=== PATIENT | female | born 1990 | race African-American/Black ===

== ENCOUNTER 2017-06-26 19:01 | Inpatient (IN) | payer BC, OTHER ==
[~2017-06-26] VITALS: Ht 165.1 cm; Wt 73.5 kg
[2017-06-26] MEDS ORDERED: METHYLPREDNISOLONE 125 MG INJ IV ONE (20:30)
[2017-06-26 21:23] LABS: INR 0.97; PROTIME 12.9 Sec (12.2-14.2)
[2017-06-26 21:24] LABS: PARTIAL THROMBOPLASTIN TIME 31.8 Sec (25.0-35.0)
[2017-06-26 21:30] LABS: ALBUMIN 4.8 g/dl (3.3-4.9); ALBUMIN/GLOBULIN RATIO 1.45; BILIRUBIN,INDIRECT 0.3 mg/dl (0-1.1); BILIRUBIN,TOTAL 0.3 mg/dl (0.2-1.3); CALCIUM 10.1 mg/dl (8.4-10.2); CREATININE 0.66 mg/dl (0.44-1.00); POTASSIUM 3.6 mmol/L (3.5-5.1); TOTAL PROTEIN 8.1 g/dl (6.1-8.1)
[2017-06-26] MEDS ORDERED: LORAZEPAM 2 MG INJ IV ONE (22:00)
[2017-06-27] VITALS (15 sets, daily range): BP systolic 107–119; BP diastolic 56–80; PULSE 83–153; RESP 16–18; TEMP 98.1; Ht 165.1 cm; Wt 73.5 kg
[2017-06-27] MEDS ORDERED: BISACODYL (EC) 5 MG TAB PO PRN (02:30)
[2017-06-27] MEDS ORDERED: DOCUSATE SODIUM 100 MG CAP PO PRN (02:30)
[2017-06-27] MEDS ORDERED: NACL 0.9% 3 ML SYG IV SCH (02:30)
[2017-06-27] MEDS ORDERED: ONDANSETRON 4 MG TAB PO PRN (02:30)
--- NOTE | 2017-06-27 02:39 | ERD ---
ER Documentation Chief Complaint Chief Complaint numbness on L leg x 3 weeks HPI 26-year-old female with history of transverse myelitis with residual right lower extremity weakness comes in with complaints of lower left lower leg numbness for the past 2 weeks getting progressively worse. No nausea vomiting or chills. No change in bowel or bladder incontinence. No other current issues. Denies any focal neurologic complaints otherwise. Denies trauma. Patient states that she is slightly numb on the buttock and thigh and decreasingly numb in the lowest part of the extremity ROS All systems reviewed and are negative except as per history of present illness. Allergies Allergies: Coded Allergies: aspirin (Verified Allergy, Unknown, 06/26/17) PMhx/Soc Medical and Surgical Hx: pt denies Medical Hx, pt denies Surgical Hx History of Surgery: No Anesthesia Reaction: No Hx Neurological Disorder: Yes (right leg numbness ) Hx Respiratory Disorders: No Hx Cardiac Disorders: No Hx Psychiatric Problems: No Hx Miscellaneous Medical Probl: No Hx Alcohol Use: No Hx Substance Use: No Hx Tobacco Use: No Smoking Status: Never smoker Physical Exam Vitals Vital Signs Date Time Temp Pulse Resp B/P Pulse Ox O2 Delivery O2 Flow Rate FiO2 06/27/17 02:00 98.1 103 18 117/63 97 Room Air 06/26/17 19:32 98.5 83 20 131/76 99 Physical Exam Const: [] Head: Atraumatic Eyes: Normal Conjunctiva ENT: Normal External Ears, Nose and Mouth. Neck: Full range of motion..~ No meningismus. Resp: Clear to auscultation bilaterally Cardio: Regular rate and rhythm, no murmurs Abd: Soft, non tender, non distended. Normal bowel sounds Skin: No petechiae or rashes Back: No midline or flank tenderness Ext: No cyanosis, or edema Neur: Awake and alert Psych: Normal Mood and Affect Result Diagram: 06/26/172044 Results 24 hrs Laboratory Tests Test 06/26/17 20:45 Prothrombin Time 12.9Sec Prothrombin Time Ratio 1.0 INR International Normalized Ratio 0.97 Activated Partial Thromboplast Time 31.8Sec Sodium Level 141mmol/L Potassium Level 3.6mmol/L Chloride Level 102mmol/L Carbon Dioxide Level 25mmol/L Anion Gap 18 Blood Urea Nitrogen 13mg/dl Creatinine 0.66mg/dl Glucose Level 102mg/dl Calcium Level 10.1mg/dl Total Bilirubin 0.3mg/dl Direct Bilirubin 0.00mg/dl Indirect Bilirubin 0.3mg/dl Aspartate Amino Transf (AST/SGOT) 20IU/L Alanine Aminotransferase (ALT/SGPT) 21IU/L Alkaline Phosphatase 56IU/L Total Protein 8.1g/dl Albumin 4.8g/dl Globulin 3.30g/dl Albumin/Globulin Ratio 1.45 Current Medications Medications (Trade) Dose Ordered Sig/Avel Route PRN Reason Start Time Stop Time Status Last Admin Dose Admin Methylprednisolone Sodium Succinate (Solu-Medrol) 125 mg ONCE ONCE IV 06/26/17 20:30 06/26/17 20:31 DC 06/26/17 20:50 Lorazepam 1 mg 1 mg ONCE ONCE IV 06/26/17 22:00 06/26/17 22:04 DC 06/26/17 21:42 Methylprednisolone Sodium Succinate/ Dextrose (Solu-Medrol/D5W) 50 ml @ 100 mls/hr DAILY IVPB 06/27/17 03:00 07/02/17 02:59 Pantoprazole (Protonix Tab) 40 mg DAILY@06 PO 06/27/17 06:00 IV Flush (NS 3 ml) 3 ml PER PROTOCOL IV 06/27/17 02:30 Ondansetron HCl (Zofran Tab) 4 mg Q6H PRN PO NAUSEA AND/OR VOMITING 06/27/17 02:30 Acetaminophen (Tylenol Tab) 650 mg Q6H PRN PO PAIN LEVEL 1-3 OR FEVER 06/27/17 02:30 Docusate Sodium (Colace) 100 mg Q12H PRN PO CONSTIPATION 06/27/17 02:30 Bisacodyl (Dulcolax) 5 mg DAILY PRN PO CONSTIPATION 06/27/17 02:30 Procedures/MDM Medical decision-makin-year-old female transverse myelitis flare. Patient given Solu-Medrol. Admitted to hospitalist. Departure Diagnosis: Primary Impression: Transverse myelitis Condition: Serious ROGELIOALEXKATEYMEGANJason Jun 27, 2017 02:39
[2017-06-27] MEDS ORDERED: morphine 4 MG/ML VIAL IV STA (02:56)
[2017-06-27] MEDS ORDERED: ONDANSETRON 4 MG INJ IV STA (02:56)
[2017-06-27] MEDS: METHYLPRED. NA SUCC 1,000 MG in DEXTROSE 5% 50 ML IVPB SCH (03:18)
[2017-06-27] MEDS ORDERED: LORAZEPAM 2 MG INJ IV ONE ×2 (04:00→21:00)
[2017-06-27] MEDS ORDERED: GABA100C14 PO (04:58)
[2017-06-27] MEDS ORDERED: CHOL400T10 PO (04:58)
[2017-06-27] MEDS ORDERED: TYL650R PR (04:58)
[2017-06-27] MEDS ORDERED: TRAM50TA2 PO (04:58)
[2017-06-27] MEDS: PANTOPRAZOLE (EC) 40 MG TAB PO SCH (06:57)
[2017-06-27] MEDS ORDERED: LORAZEPAM 2 MG INJ IV PRN (07:00)
--- NOTE | 2017-06-27 07:10 | HP ---
Date/Time of Note Date/Time of Note DATE: 06/27/17 TIME: 06:55 Assessment/Plan VTE Prophylaxis VTE Prophylaxis Intervention: SCD's Lines/Catheters [facility] Saline Lock Urinary Cath still in place: No Assessment/Plan Chief Complaint/Hosp Course This is a 26-year-old female being admitted to the telemetry floor for: #1 Bilateral lower extremity weakness: Patient has chronic weakness of the right lower extremity with worsening over the last 2 weeks of the left lower extremity. There is concern for possible transverse myelitis flare. At the current time I will start her on high-dose steroids of 1000 mg daily for 5 days. Will obtain an MRI with and without contrast of the lumbar spine which is already been ordered by the ED. This patient is claustrophobic I will provide her with Ativan prior to the MRI. Will consult neurology and may also need neurosurgery. Further imaging studies as per neurology and based on prior MRI results from [facility]. We will also try to obtain patient's previous hospital records from [facility] with the help of case management. Will provide her [place] for lower back pain and she states that she has allergies to NSAIDs/aspirin. She will also need PT evaluation once cleared by neurology. #2 transverse myelitis: Patient has a history of transverse myelitis which she was originally diagnosed with in [place] according to her. At the current time she reports lumbar spine pain. An MRI has already been ordered. She does not have any urinary incontinence or saddle anesthesia at this time. #3 claustrophobia: Patient apparently has severe anxiety when he comes to enclosed spaces such as an MRI and elevator. I will provide her with Ativan. #4 DVT and GI prophylaxis: SCDs, Protonix Further treatment strategy will be implemented as per the clinical course Problems: HPI/ROS Admit Date/Time Admit Date/Time Jun 27, 2017 at 01:38 Hx of Present Illness Complaint: Left lower extremity numbness and weakness This is a 26-year-old female with history of transverse myelitis with residual right lower extremity weakness comes in with complaints of lower left lower leg numbness for the past 2 weeks getting progressively worse. No nausea vomiting or chills. No change in bowel or bladder incontinence. No other current issues. Denies any focal neurologic complaints otherwise. Denies trauma. Patient states that she is slightly numb on the buttock and thigh as well. She states that she has a lower lumbar back pain which she initially had when she was first diagnosed with a transverse myelitis. She has been treated at [facility] prior to this and was initially diagnosed with this while she was in [place]. She states she had MRIs done within the last [address] [facility] and she was actually discharged from there and she was supposed to go to rehab however she ended up going home instead. She also reports that she has severe claustrophobia and enclosed spaces such as MRIs and in the elevators. She ambulates using crutches. She currently lives with a roommate. Allergies: Aspirin Medications: See CHINO MALLOY Const: As per HPI Eyes : No pain discharge or redness or change in visual acuity ENT: No pain, sore throat, congestion, congestion, dysphagia or discharge Respiratory: No shortness of breath, cough, sputum, wheezing, or pleuritic pain Cardiovascular: No chest pain, palpitation, PND, or edema GI : no change in appetite, abdominal pain, nausea, vomiting, diarrhea, constipation, or change in the color his stool Genitourinary: No dysuria, hematuria, flank pain , discharge or CVA tenderness Musculoskeletal: As per HPI Skin: No rash, bruising or hives Neuro: As per HPI Endocrine: No polyuria, polydipsia, temperature intolerance Psych: No hallucination, depression, anxiety or suicidal ideation PMH/Family/Social Past Medical History Transverse myelitis, endometriosis Past Surgical History Tonsillectomy, deviated septum surgery Family History Significant Family History: hypertension Social History Alcohol Use: rarely Smoking Status: Never smoker Drug Use: none Exam/Review of Systems Vital Signs Vitals Vital Signs Date Time Temp Pulse Resp B/P Pulse Ox O2 Delivery O2 Flow Rate FiO2 06/27/17 05:25 98.3 116 17 119/76 97 06/27/17 02:00 Room Air Exam Exam General: Patient is lying in bed in no acute distress HEENT: Atraumatic, normocephalic. The pupils are equal, round and reactive. Extraocular motor are intact Neck: Supple with full range of motion. No rigidity or meningismus Chest: Nontender Lungs: Clear to auscultation bilaterally no crackles rales or wheezing Heart: Normal S1-S2, Regular rhythm and rate. No murmur, S3, or S4 Abdomen: Soft , nontender, nondistended , bowel sounds are present. No guarding no rebound tenderness , No masses or organomegaly. No costovertebral temporal angle mass Extremities: 0 out of 5 strength in the right lower extremity with no sensation this is chronic, left lower extremity 3 out of 5 strength with sensation decreased Neurologic: Normal mental status, speech normal, cranial nerves II through XII are intact, no sensation of right lower extremity which is chronic, decreased sensation of the left lower extremity Labs Result Diagram: 06/26/172044 Medications Medications Current Medications Methylprednisolone Sodium Succinate/ Dextrose (Solu-Medrol/D5W) 50 ml @ 100 mls /hr DAILY IVPB Last administered on 06/27/17t 03:18; Admin Dose 100 MLS/HR; Start 06/27/17 at 03:00; Stop 07/02/17 at 02:59 Pantoprazole (Protonix Tab) 40 mg DAILY@06 PO ; Start 06/27/17 at 06:00 Ondansetron HCl (Zofran Tab) 4 mg Q6H PRN PO NAUSEA AND/OR VOMITING; Start at 02:30 Acetaminophen (Tylenol Tab) 650 mg Q6H PRN PO PAIN LEVEL 1-3 OR FEVER; Start 06/27/17 at 02:30 Docusate Sodium (Colace) 100 mg Q12H PRN PO CONSTIPATION; Start 06/27/17 at 02 :30 Bisacodyl (Dulcolax) 5 mg DAILY PRN PO CONSTIPATION; Start 06/27/17 at 02:30 Acetaminophen/ Hydrocodone Bitart ([place] (5/325)) 1 tab Q6H PRN PO PAIN; Start 06/27/17 at 07:00; Status ALEX CARRASCO Jun 27, 2017 07:07
[2017-06-27] MEDS: HYDROCODONE/APAP (5/325) TAB PO PRN ×3 (08:15→22:51)
[2017-06-27 08:57] LABS: ABNORMAL IP MESSAGE 1; BASOPHILS % 0.2 % (0.0-2.0); HEMATOCRIT 37.2 % (37.0-47.0); HEMOGLOBIN 12.7 g/dl (12.0-16.0); LYMPHOCYTES # 0.4 10^3/ul (0.8-2.9); LYMPHOCYTES % 8.6 % (15.0-51.0); MEAN CORPUSCULAR HEMOGLOBIN 30.2 pg (29.0-33.0); MEAN CORPUSCULAR HGB CONC 34.1 g/dl (32.0-37.0); MEAN CORPUSCULAR VOLUME 88.4 fl (82.0-101.0); MONOCYTES % 0.4 % (0.0-11.0); NEUTROPHIL # 4.1 10^3/ul (1.6-7.5); NEUTROPHILS % 90.6 % (39.0-77.0); PLATELET COUNT 309 10^3/UL (140-415); RED BLOOD COUNT 4.21 10^6/ul (4.20-5.40); RED CELL DISTRIBUTION WIDTH 14.2 % (11.5-14.5); WHITE BLOOD COUNT 4.5 10^3/ul (4.8-10.8)
[2017-06-27 08:58] LABS: POSITIVE DIFF @See below
[2017-06-27] MEDS ORDERED: CHOLECALCIFEROL 400 UNITS TAB PO SCH (09:00)
[2017-06-27 09:08] LABS: CHOL/HDL RATIO 2.6 RATIO; MAGNESIUM 1.6 mg/dl (1.7-2.5)
[2017-06-27 09:15] LABS: ALBUMIN 4.4 g/dl (3.3-4.9); ALBUMIN/GLOBULIN RATIO 1.25; BILIRUBIN,INDIRECT 0.4 mg/dl (0-1.1); BILIRUBIN,TOTAL 0.4 mg/dl (0.2-1.3); CALCIUM 10.7 mg/dl (8.4-10.2); CREATININE 0.62 mg/dl (0.44-1.00); POTASSIUM 4.4 mmol/L (3.5-5.1); TOTAL PROTEIN 7.9 g/dl (6.1-8.1)
[2017-06-27] MEDS: GABAPENTIN 100 MG CAP PO SCH ×3 (09:28→20:15)
[2017-06-27] MEDS: CHOLECALCIFEROL 1,000 UNIT TAB PO SCH (09:28)
[2017-06-27 09:39] LABS: THYROID STIMULATING HORMONE 0.179 MIU/L (0.465-4.680)
--- NOTE | 2017-06-27 11:41 | CONS ---
Date/Time of Note Date/Time of Note DATE: 06/27/17 TIME: 11:34 Assessment/Plan Assessment/Plan Chief Complaint/Hosp Course 26 yo female with hx of transverse myelitis workup at outside hospital baseline RLE weakness and urinary incontinence p/w new onset LLE weakness. Exam with b/l nystagmus and RUE ataxia indication there may be brainstem involvement. Would recommend MRI Brain +/- contrast MRI Cervical and Thoracic Spine +/- contrast Lumbar spine imaging is not necessary at this time Depending on results of imaging will likely recommend LP to evaluate for CSF studies IgG index and oligoclonal bands MS panel May continue 5 Days of IV steroids for suspected demyelinating disease check B12, Vitamin D levels replete magnesium and electrolyte abnormalities PT/OT evaluation DVT ppx will follow obtain outside records if possible Problems: Consultation Date/Type/Reason Admit Date/Time Jun 27, 2017 at 01:38 Date of Consultation: Jun 27, 2017 Type of Consultation: Neurology Reason for Consultation Transverse Myelitis Referring Provider: ALEX CARLOS Hx of Present Illness 26 year old female with reported hx of TM dx at [facility] in [place] was treated with IV steroids residual right LE weakness and urinary urinary retention at baseline ambulates with crutches. She was previously fu with a neurologist but do her insurance has been lost to follow up. Per pt the etiology of transverse myelitis is thought to be from flu shot. She denies a work up for MS, denies ever having an MRI Brain done. She presents due to sensation of weakness and numbness now in her left leg. RLE numbness weakness Social History Alcohol Use: rarely Smoking Status: Never smoker Drug Use: none Exam/Review of Systems Vital Signs Vitals Vital Signs Date Time Temp Pulse Resp B/P Pulse Ox O2 Delivery O2 Flow Rate FiO2 06/27/17 11:27 97.8 77 16 119/80 92 06/27/17 02:00 Room Air Exam Constitutional: alert, oriented, well developed (no aphasia, CN bilateral horizontal gaze nystagmus visual petty intact EOMI no facial asymmetry Motor RUE ataxia 5-/5, RLE 1/5 strength LUE 5/5 LLE 5-/5 Reflexes 2+ throughout, brisk in LLE toes down ) Results Result Diagram: 06/27/17 0744 06/27/17 0744 Results 24 hrs Laboratory Tests Test 06/26/17 20:45 06/27/17 07:44 06/27/17 09:07 Prothrombin Time 12.9 Prothrombin Time Ratio 1.0 INR International Normalized Ratio 0.97 Activated Partial Thromboplast Time 31.8 Sodium Level 141 141 Potassium Level 3.6 4.4 Chloride Level 102 105 Carbon Dioxide Level 25 25 Anion Gap 18 H 15 Blood Urea Nitrogen 13 11 Creatinine 0.66 0.62 Glucose Level 102 169 Calcium Level 10.1 10.7 H Total Bilirubin 0.3 0.4 Direct Bilirubin 0.00 0.00 Indirect Bilirubin 0.3 0.4 Aspartate Amino Transf (AST/SGOT) 20 19 Alanine Aminotransferase (ALT/SGPT) 21 24 Alkaline Phosphatase 56 63 Total Protein 8.1 7.9 Albumin 4.8 4.4 Globulin 3.30 H 3.50 H Albumin/Globulin Ratio 1.45 1.25 White Blood Count 4.5 L Red Blood Count 4.21 Hemoglobin 12.7 Hematocrit 37.2 Mean Corpuscular Volume 88.4 Mean Corpuscular Hemoglobin 30.2 Mean Corpuscular Hemoglobin Concent 34.1 Red Cell Distribution Width 14.2 Platelet Count 309 Mean Platelet Volume 12.0 H Neutrophils % 90.6 H Lymphocytes % 8.6 L Monocytes % 0.4 Eosinophils % 0.0 Basophils % 0.2 Nucleated Red Blood Cells % 0.0 Neutrophils # 4.1 Lymphocytes # 0.4 L Monocytes # 0.0 L Eosinophils # 0.0 Basophils # 0.0 Nucleated Red Blood Cells # 0.0 Hemoglobin A1c 5.1 Magnesium Level 1.6 L Triglycerides Level 36 Cholesterol Level 157 LDL Cholesterol, Calculated 90 HDL Cholesterol 60 Cholesterol/HDL Ratio 2.6 Thyroid Stimulating Hormone (TSH) 0.179 L Lab Scanned Report LAB Medications Medications Current Medications Methylprednisolone Sodium Succinate/ Dextrose (Solu-Medrol/D5W) 50 ml @ 100 mls /hr DAILY IVPB Last administered on 06/27/17 03:18; Admin Dose 100 MLS/HR; Start 06/27/17 at 03:00; Stop 07/02/17 at 02:59 Pantoprazole (Protonix Tab) 40 mg DAILY@06 PO Last administered on 06/27/17 06:57; Admin Dose 40 MG; Start 06/27/17 at 06:00 Ondansetron HCl (Zofran Tab) 4 mg Q6H PRN PO NAUSEA AND/OR VOMITING; Start at 02:30 Acetaminophen (Tylenol Tab) 650 mg Q6H PRN PO PAIN LEVEL 1-3 OR FEVER; Start 06/27/17 at 02:30 Docusate Sodium (Colace) 100 mg Q12H PRN PO CONSTIPATION; Start 06/27/17 at 02 :30 Bisacodyl (Dulcolax) 5 mg DAILY PRN PO CONSTIPATION; Start 06/27/17 at 02:30 Acetaminophen/ Hydrocodone Bitart ([place] (5/325)) 1 tab Q6H PRN PO PAIN Last administered on 06/27/17 08:15; Admin Dose 1 TAB; Start 06/27/17 at 07:00 Lorazepam (Ativan) 1 mg ONCE PRN IV AGITATION/ANXIETY; Start 06/27/17 at 07:00 ; Stop 06/27/17 at 15:00 Gabapentin (Neurontin) 200 mg TID PO Last administered on 06/27/17 09:28; Admin Dose 200 MG; Start 06/27/17 at 09:00 Cholecalciferol (Vitamin D) 5,000 unit DAILY PO Last administered on 09:28; Admin Dose 5,000 UNIT; Start 06/27/17 at 09:08 LILY MCCLAIN MD Jun 27, 2017 11:41
[2017-06-27] MEDS ORDERED: morphine 2 MG INJ IV STA (13:24)
[2017-06-27] MEDS: ONDANSETRON 4 MG INJ IV PRN (18:20)
[2017-06-27] MEDS ORDERED: LORAZEPAM 2 MG INJ IM ONE (21:00)
[2017-06-28] VITALS (11 sets, daily range): BP systolic 98–121; BP diastolic 60–71; PULSE 70–110; RESP 17–20
[2017-06-28] MEDS: PANTOPRAZOLE (EC) 40 MG TAB PO SCH (05:15)
[2017-06-28] MEDS: HYDROCODONE/APAP (5/325) TAB PO PRN ×3 (05:15→17:11)
[2017-06-28] MEDS: METHYLPRED. NA SUCC 1,000 MG in DEXTROSE 5% 50 ML IVPB SCH (08:19)
[2017-06-28] MEDS: CHOLECALCIFEROL 1,000 UNIT TAB PO SCH (08:20)
[2017-06-28] MEDS: GABAPENTIN 100 MG CAP PO SCH ×3 (08:20→20:33)
--- NOTE | 2017-06-28 13:06 | CONS ---
Date/Time of Note Date/Time of Note DATE: 06/28/17 TIME: 13:05 Consult Date/Type/Reason Admit Date/Time Jun 27, 2017 at 01:38 Initial Consult Date 06/27/17 Type of Consultation: Neurology Reason for Consultation Transverse Myelitis hx Ordering Provider: ALEX CARLOS Subjective remains stable receiving IV steroids Objective Vital Signs Date Time Temp Pulse Resp B/P Pulse Ox O2 Delivery O2 Flow Rate FiO2 06/28/17 12:01 105 06/28/17 11:23 97.9 20 98/60 100 06/27/17 02:00 Room Air Intake and Output 06/27/17 06/27/17 06/28/17 14:59 22:59 06:59 Intake Total 100 ml 500 ml 325 ml Output Total 500 ml 275 ml Balance 100 ml 0 ml 50 ml Exam Constitutional: alert, oriented, well developed (no aphasia, CN bilateral horizontal gaze nystagmus visual petty intact EOMI no facial asymmetry Motor RUE ataxia 5-/5, RLE 1/5 strength LUE 5/5 LLE 5-/5 Reflexes 2+ throughout, brisk in LLE toes down ) Results/Medications Result Diagram: 06/27/17 0744 06/27/17 0744 Medications Current Medications Methylprednisolone Sodium Succinate/ Dextrose (Solu-Medrol/D5W) 50 ml @ 100 mls /hr DAILY IVPB Last administered on 06/28/17 08:19; Admin Dose 100 MLS/HR; Start 06/27/17 at 03:00; Stop 07/02/17 at 02:59 Pantoprazole (Protonix Tab) 40 mg DAILY@06 PO Last administered on 06/28/17 05:15; Admin Dose 40 MG; Start 06/27/17 at 06:00 Ondansetron HCl (Zofran Tab) 4 mg Q6H PRN PO NAUSEA AND/OR VOMITING; Start at 02:30 Acetaminophen (Tylenol Tab) 650 mg Q6H PRN PO PAIN LEVEL 1-3 OR FEVER; Start 06/27/17 at 02:30 Docusate Sodium (Colace) 100 mg Q12H PRN PO CONSTIPATION; Start 06/27/17 at 02 :30 Bisacodyl (Dulcolax) 5 mg DAILY PRN PO CONSTIPATION; Start 11/28/17 at 02:30 Acetaminophen/ Hydrocodone Bitart ([place] (5/325)) 1 tab Q6H PRN PO PAIN Last administered on 06/28/17 11:03; Admin Dose 1 TAB; Start 06/27/17 at 07:00 Gabapentin (Neurontin) 200 mg TID PO Last administered on 06/28/17 12:58; Admin Dose 200 MG; Start 06/27/17 at 09:00 Cholecalciferol (Vitamin D) 5,000 unit DAILY PO Last administered on 08:20; Admin Dose 5,000 UNIT; Start 06/27/17 at 09:08 Ondansetron HCl (Zofran Inj) 4 mg Q6H PRN IV NAUSEA AND/OR VOMITING Last administered on 06/27/17 18:20; Admin Dose 4 MG; Start 06/27/17 at 18:30 Tramadol HCl (Ultram) 50 mg Q6H PRN PO PAIN; Start 06/28/17 at 13:00 Assessment/Plan Chief Complaint/Hosp Course 26 yo female with hx of transverse myelitis workup at outside hospital baseline RLE weakness and urinary incontinence p/w new onset LLE weakness. Exam with b/l nystagmus and RUE ataxia indication there may be brainstem involvement. Would recommend MRI Brain +/- contrast MRI Cervical and Thoracic Spine +/- contrast Lumbar spine imaging is not necessary at this time Depending on results of imaging will likely recommend LP to evaluate for CSF studies IgG index and oligoclonal bands MS panel May continue 5 Days of IV steroids for suspected demyelinating disease check B12, Vitamin D levels replete magnesium and electrolyte abnormalities PT/OT evaluation DVT ppx will follow obtain outside records if possible Problems: LILY MCCLAIN MD Jun 28, 2017 13:06
[2017-06-28] MEDS: traMADol 50 MG TAB PO PRN ×2 (13:57→20:34)
[2017-06-28] MEDS ORDERED: LORAZEPAM 2 MG INJ IV ONE ×2 (14:30→21:30)
--- NOTE | 2017-06-28 15:11 | PN ---
Date/Time of Note Date/Time of Note DATE: 06/28/17 TIME: 15:09 Assessment/Plan VTE Prophylaxis VTE Prophylaxis Intervention: LMWH Lines/Catheters IV Catheter Type (from Nrsg): Saline Lock Urinary Cath still in place: No (prn straight cath ) Assessment/Plan Chief Complaint/Hosp Course 26 yo female with chronic back pain, reported history of transverse myelitis leading to RLE weakeness presenting now with LLE numbness LLE numbness: - Concerning for demyelinating disease - Management per Dr Rodriguez from neurology - Continue steroids - MRIs pending, possibly LP - PT/OT Tramadol for pain Can give ativan and propranolol prior to MRI Problems: Subjective 24 Hr Interval Summary Free Text/Dictation Unable to tolerate MRI 2/2 back pain and anxiety despite 1 mg ativan, plan to repeat todya Still LLE numbness to thigh Exam/Review of Systems Vital Signs Vitals Vital Signs Date Time Temp Pulse Resp B/P Pulse Ox O2 Delivery O2 Flow Rate FiO2 06/28/17 12:01 105 06/28/17 11:23 97.9 20 98/60 100 06/27/17 02:00 Room Air Intake and Output 06/27/17 06/27/17 06/28/17 15:00 23:00 07:00 Intake Total 100 ml 500 ml 325 ml Output Total 500 ml 275 ml Balance 100 ml 0 ml 50 ml Exam RLE weakness throughout 1/5 LLE 4/5, subjective numbness to thigh Constitutional: alert, oriented, well developed Psych: nl mood/affect, no complaints Head: atraumatic, normocephalic Eyes: EOMI, PERRL, nl conjunctiva, nl lids, nl sclera ENMT: nl external ears & nose, nl lips & teeth, nl nasal mucosa & septum Neck: non-tender, supple Respiratory: clear to auscultation, normal air movement Cardiovascular: nl pulses, regular rate and rhythm Gastrointestinal: nl liver, spleen, non-tender, soft Musculoskeletal: nl extremities to inspection, nl gait and stance Extremities: normal pulses Neurological: [employer] II-XII intact, nl mental status, nl speech, nl strength Skin: nl turgor, No rash or lesions Lymph: nl lymph nodes Results Result Diagram: 06/27/17 0744 06/27/17 0744 Medications Medications Current Medications Methylprednisolone Sodium Succinate/ Dextrose (Solu-Medrol/D5W) 50 ml @ 100 mls /hr DAILY IVPB Last administered on 06/28/17 08:19; Admin Dose 100 MLS/HR; Start 06/27/17 at 03:00; Stop 07/02/17 at 02:59 Pantoprazole (Protonix Tab) 40 mg DAILY@06 PO Last administered on 06/28/17 05:15; Admin Dose 40 MG; Start 06/27/17 at 06:00 Ondansetron HCl (Zofran Tab) 4 mg Q6H PRN PO NAUSEA AND/OR VOMITING; Start at 02:30 Acetaminophen (Tylenol Tab) 650 mg Q6H PRN PO PAIN LEVEL 1-3 OR FEVER; Start 06/27/17 at 02:30 Docusate Sodium (Colace) 100 mg Q12H PRN PO CONSTIPATION; Start 06/27/17 at 02 :30 Bisacodyl (Dulcolax) 5 mg DAILY PRN PO CONSTIPATION; Start 06/27/17 at 02:30 Acetaminophen/ Hydrocodone Bitart ([place] (5/325)) 1 tab Q6H PRN PO PAIN Last administered on 06/28/17 11:03; Admin Dose 1 TAB; Start 06/27/17 at 07:00 Gabapentin (Neurontin) 200 mg TID PO Last administered on 06/28/17 12:58; Admin Dose 200 MG; Start 06/27/17 at 09:00 Cholecalciferol (Vitamin D) 5,000 unit DAILY PO Last administered on 08:20; Admin Dose 5,000 UNIT; Start 06/27/17 at 09:08 Ondansetron HCl (Zofran Inj) 4 mg Q6H PRN IV NAUSEA AND/OR VOMITING Last administered on 06/27/17 18:20; Admin Dose 4 MG; Start 06/27/17 at 18:30 Tramadol HCl (Ultram) 50 mg Q6H PRN PO PAIN Last administered on 06/28/17 13: 57; Admin Dose 50 MG; Start 06/28/17 at 13:00 Lorazepam (Ativan) 2 mg ONCE ONCE IV ; Start 06/28/17 at 21:30; Stop at 21:31 Propranolol HCl (Inderal) 20 mg ONCE ONCE PO ; Start 06/28/17 at 21:30; Stop 06/28/17 at 21:31 JOSÉ LUIS ISBELL MD Jun 28, 2017 15:11
[2017-06-28] MEDS ORDERED: PROPRANOLOL 20 MG TAB PO ONE (21:30)
[2017-06-28] MEDS ORDERED: morphine 2 MG INJ IV ONE (22:55)
[2017-06-29] VITALS (9 sets, daily range): BP systolic 103–121; BP diastolic 53–73; PULSE 52–100; RESP 17–20
[2017-06-29] MEDS: HYDROCODONE/APAP (5/325) TAB PO PRN ×3 (01:55→20:43)
[2017-06-29] MEDS: PANTOPRAZOLE (EC) 40 MG TAB PO SCH (06:05)
[2017-06-29] MEDS: traMADol 50 MG TAB PO PRN ×2 (06:05→22:18)
[2017-06-29] MEDS ORDERED: LORAZEPAM 2 MG INJ IV ONE (08:00)
[2017-06-29] MEDS ORDERED: PROPRANOLOL 20 MG TAB PO ONE (08:00)
[2017-06-29] MEDS ORDERED: morphine 2 MG INJ IV ONE (08:00)
[2017-06-29] MEDS: CHOLECALCIFEROL 1,000 UNIT TAB PO SCH (08:12)
[2017-06-29] MEDS: GABAPENTIN 100 MG CAP PO SCH ×3 (08:12→20:43)
[2017-06-29] MEDS: METHYLPRED. NA SUCC 1,000 MG in DEXTROSE 5% 50 ML IVPB SCH (08:12)
--- NOTE | 2017-06-29 08:33 | RADRPT ---
PROCEDURE: MR Brain without intravenous contrast CLINICAL INDICATION: Transverse myelitis. Ataxia. Right lower extremity paralysis. COMPARISON: None relevant listed. TECHNIQUE: Sagittal T1, axial T1 FLAIR T2 diffusion, and gradient-echo images were obtained. FINDINGS: Parenchyma: No acute hemorrhage, infarction, or mass. There is no parenchymal volume loss. No pathol ogic signal is present on FLAIR T2-weighted images within the white matter. No hemorrhagic blood pro ducts are demonstrated on gradient echo images. Ventricles: No ventricular enlargement or ventricular effacement. Extra-axial spaces: No herniation or midline shift. Orbits: Unremarkable. Major intracranial flow voids: Preserved. Paranasal sinuses: Clear. Mastoids and middle ears: Clear. Bones: Normal. Extracranial soft tissues: Normal. Additional comment: None. IMPRESSION: Unremarkable examination. RPTAT: HRSR Physician Brittany Date Time Electronically viewed and signed by Physician Brittany on 06/29/2017 08:33 RR/
--- NOTE | 2017-06-29 09:46 | RADRPT ---
PROCEDURE: MR Cervical Spine. CLINICAL INDICATION: TECHNIQUE: An MRI of the cervical spine was performed on a 1.5 luis scanner utilizing the follow ing sequences: Sagittal and axial T1 weighted, sagittal and axial T2 weighted, sagittal T2 weighted with fat saturation, and axial GRE. COMPARISON: No prior studies are available for comparison. FINDINGS: The visualized posterior fossa contents, brainstem, and cervical spinal cord are unremarkable. The v ertebral bodies are normal in height, marrow signal, and alignment. The craniocervical junction is u nremarkable. C1-2: Normal atlanto-occipital and atlantoaxial articulation. C2-3: The disk is normal in height. No disk bulge or protrusion. The central canal and foramina are adequately patent. C3-4: The disk is normal in height. Minimal disc desiccation posterior disc bulging of 1 mm. The jailyn tral canal and foramina are adequately patent. C4-5: The disk is normal in height. Minimal disc desiccation posterior disc bulging 1 mm. The centra l canal and foramina are adequately patent. C5-6: The disk is normal in height. Minimal disc desiccation posterior disc bulging of 1 mm. The jailyn tral canal and foramina are adequately patent. C6-7: The disk is normal in height. No disk bulge or protrusion. The central canal and foramina are adequately patent. C7-T1: The disk is normal in heights. No disk bulge or protrusion. The central canal and foramina ar e adequately patent. No paravertebral soft tissue abnormality. IMPRESSION: 1. Minimal disc desiccation and posterior disc bulging from C3-C4 through C5-C6. No focal disc protr usion, central canal, or foraminal stenosis. 2. Normal cervical spinal cord. 3. No paravertebral soft tissue abnormality. RPTAT:AAJJ Physician Mc Date Time Electronically viewed and signed by Physician Mc on 06/29/2017 09:46 KIRBY/
--- NOTE | 2017-06-29 12:03 | CONS ---
Date/Time of Note Date/Time of Note DATE: 06/29/17 TIME: 11:56 Consult Date/Type/Reason Admit Date/Time Jun 27, 2017 at 01:38 Initial Consult Date 06/27/17 Type of Consultation: Neurology Reason for Consultation evaluate for MS Ordering Provider: ALEX CARLOS Subjective MRI Brain and MRI T Spine is negative for any lesions Objective Vital Signs Date Time Temp Pulse Resp B/P Pulse Ox O2 Delivery O2 Flow Rate FiO2 06/29/17 11:41 98.2 79 18 121/73 97 06/27/17 02:00 Room Air Intake and Output 06/28/17 06/28/17 06/29/17 15:00 23:00 07:00 Intake Total 1010 ml 500 ml Output Total 1000 ml 900 ml Balance 10 ml -400 ml Exam Constitutional: alert, oriented, well developed (no aphasia, CN bilateral horizontal gaze nystagmus visual petty intact EOMI no facial asymmetry Motor RUE ataxia 5-/5, RLE 1/5 strength LUE 5/5 LLE 5-/5 Reflexes 2+ throughout, brisk in LLE toes down ) Results/Medications Result Diagram: 06/27/17 0744 06/27/17 0744 Medications Current Medications Methylprednisolone Sodium Succinate/ Dextrose (Solu-Medrol/D5W) 50 ml @ 100 mls /hr DAILY IVPB Last administered on 06/29/17 08:12; Admin Dose 100 MLS/HR; Start 06/27/17 at 03:00; Stop 07/02/17 at 02:59 Pantoprazole (Protonix Tab) 40 mg DAILY@06 PO Last administered on 06/29/17 06:05; Admin Dose 40 MG; Start 06/27/17 at 06:00 Ondansetron HCl (Zofran Tab) 4 mg Q6H PRN PO NAUSEA AND/OR VOMITING; Start at 02:30 Acetaminophen (Tylenol Tab) 650 mg Q6H PRN PO PAIN LEVEL 1-3 OR FEVER; Start 06/27/17 at 02:30 Docusate Sodium (Colace) 100 mg Q12H PRN PO CONSTIPATION; Start 06/27/17 at 02 :30 Bisacodyl (Dulcolax) 5 mg DAILY PRN PO CONSTIPATION; Start 06/27/17 at 02:30 Acetaminophen/ Hydrocodone Bitart ([place] (5/325)) 1 tab Q6H PRN PO PAIN Last administered on 06/29/17 09:47; Admin Dose 1 TAB; Start 06/27/17 at 07:00 Gabapentin (Neurontin) 200 mg TID PO Last administered on 06/29/17 08:12; Admin Dose 200 MG; Start 06/27/17 at 09:00 Cholecalciferol (Vitamin D) 5,000 unit DAILY PO Last administered on 08:12; Admin Dose 5,000 UNIT; Start 06/27/17 at 09:08 Ondansetron HCl (Zofran Inj) 4 mg Q6H PRN IV NAUSEA AND/OR VOMITING Last administered on 06/27/17 18:20; Admin Dose 4 MG; Start 06/27/17 at 18:30 Tramadol HCl (Ultram) 50 mg Q6H PRN PO PAIN Last administered on 06/29/17 06: 05; Admin Dose 50 MG; Start 06/28/17 at 13:00 Assessment/Plan Chief Complaint/Hosp Course 26 yo female with hx of transverse myelitis workup at outside hospital baseline RLE weakness and urinary incontinence p/w new onset LLE weakness. No evidence of active demyelinating process. MRI Brain and C Spine are negative. It is possible she was previously dx with Transverse Myelitis however there is no active disease present on imaging. Suggest B12, Vitamin D supplementation, Multivitamin. dc to [place] Problems: LILY MCCLAIN MD Jun 29, 2017 12:03
--- NOTE | 2017-06-29 14:05 | PN ---
Date/Time of Note Date/Time of Note DATE: 06/29/17 TIME: 14:04 Assessment/Plan VTE Prophylaxis VTE Prophylaxis Intervention: LMWH Lines/Catheters IV Catheter Type (from Nrsg): Saline Lock Urinary Cath still in place: No (prn self cath) Assessment/Plan Chief Complaint/Hosp Course 26 yo female with chronic back pain, reported history of transverse myelitis leading to RLE weakeness presenting now with LLE numbness LLE numbness: - No evidence of demyelinating disease - Ok for discharge per Dr Rodriguez from neurology - Stop steroids - PT/OT evaluation for ARU acceptance Tramadol for pain Problems: Subjective 24 Hr Interval Summary Free Text/Dictation MRI negative Per Dr Rodriguez no further workup required Still complains of LLE numbness and RLE weakness Exam/Review of Systems Vital Signs Vitals Vital Signs Date Time Temp Pulse Resp B/P Pulse Ox O2 Delivery O2 Flow Rate FiO2 06/29/17 12:00 69 06/29/17 11:41 98.2 18 121/73 97 06/27/17 02:00 Room Air Intake and Output 06/28/17 06/28/17 06/29/17 15:00 23:00 07:00 Intake Total 1010 ml 500 ml Output Total 1000 ml 900 ml Balance 10 ml -400 ml Exam Constitutional: alert, oriented, well developed Psych: nl mood/affect, no complaints Head: atraumatic, normocephalic Eyes: EOMI, PERRL, nl conjunctiva, nl lids, nl sclera ENMT: nl external ears & nose, nl lips & teeth, nl nasal mucosa & septum Neck: non-tender, supple Respiratory: clear to auscultation, normal air movement Cardiovascular: nl pulses, regular rate and rhythm Gastrointestinal: nl liver, spleen, non-tender, soft Musculoskeletal: nl extremities to inspection, nl gait and stance Extremities: normal pulses Neurological: PANEL MONITOR II-XII intact, nl mental status, nl speech, nl strength Skin: nl turgor, No rash or lesions Lymph: nl lymph nodes Results Result Diagram: 06/27/17 0744 06/27/17 0744 Medications Medications Current Medications Methylprednisolone Sodium Succinate/ Dextrose (Solu-Medrol/D5W) 50 ml @ 100 mls /hr DAILY IVPB Last administered on 06/29/17t 08:12; Admin Dose 100 MLS/HR; Start 06/27/17 at 03:00; Stop 07/02/17 at 02:59 Pantoprazole (Protonix Tab) 40 mg DAILY@06 PO Last administered on 06/29/17 06:05; Admin Dose 40 MG; Start 06/27/17 at 06:00 Ondansetron HCl (Zofran Tab) 4 mg Q6H PRN PO NAUSEA AND/OR VOMITING; Start at 02:30 Acetaminophen (Tylenol Tab) 650 mg Q6H PRN PO PAIN LEVEL 1-3 OR FEVER; Start 06/27/17 at 02:30 Docusate Sodium (Colace) 100 mg Q12H PRN PO CONSTIPATION; Start 06/27/17 at 02 :30 Bisacodyl (Dulcolax) 5 mg DAILY PRN PO CONSTIPATION; Start 06/27/17 at 02:30 Acetaminophen/ Hydrocodone Bitart ([place] (5/325)) 1 tab Q6H PRN PO PAIN Last administered on 06/29/17 09:47; Admin Dose 1 TAB; Start 06/27/17 at 07:00 Gabapentin (Neurontin) 200 mg TID PO Last administered on 06/29/17 08:12; Admin Dose 200 MG; Start 06/27/17 at 09:00 Cholecalciferol (Vitamin D) 5,000 unit DAILY PO Last administered on 08:12; Admin Dose 5,000 UNIT; Start 06/27/17 at 09:08 Ondansetron HCl (Zofran Inj) 4 mg Q6H PRN IV NAUSEA AND/OR VOMITING Last administered on 06/27/17 18:20; Admin Dose 4 MG; Start 06/27/17 at 18:30 Tramadol HCl (Ultram) 50 mg Q6H PRN PO PAIN Last administered on 06/29/17 06: 05; Admin Dose 50 MG; Start 06/28/17 at 13:00 JOSÉ LUIS ISBELL MD Jun 29, 2017 14:05
--- NOTE | 2017-06-29 17:33 | RADRPT ---
PROCEDURE: MRI Thoracic Spine. CLINICAL INDICATION: Right upper extremity ataxia. Right lower extremity paralysis. Left-sided num bness and weakness. TECHNIQUE: An MRI of the thoracic spine was performed utilizing the following sequences: Sagittal and axial T2 weighted, axial gradient echo, sagittal T1 weighted and sagittal T2 fat sat COMPARISON: None. FINDINGS: Multiple images are degraded by motion more pronounced involving axial images. There is a normal kyphosis of the thoracic spine. The vertebral heights and alignment are maintaine d. No suspicious bone marrow signal intensity is noted. No convincing abnormal signal intensity of the thoracic spinal cord that can be confirmed on both axial and sagittal images considering motion degraded images. T1-2 through T11-12: No significant disk bulge or protrusion is seen. No significant spinal canal o r foraminal stenosis. IMPRESSION: Suboptimal motion degraded study. 1. No convincing thoracic spinal cord signal abnormality. 2. No significant thoracic spinal canal or foraminal stenosis. RPTAT: HH .Mariel Bell MD, Date Time Electronically viewed and signed by .Mariel Bell MD, MD on 06/29/2017 17:33 .N/
[2017-06-29] MEDS: ONDANSETRON 4 MG INJ IV PRN (23:26)
[2017-06-30] VITALS (11 sets, daily range): BP systolic 107–123; BP diastolic 59–76; PULSE 57–76; RESP 19–21
[2017-06-30] MEDS: morphine 2 MG INJ IV PRN ×2 (00:09→06:44)
[2017-06-30] MEDS: HYDROCODONE/APAP (5/325) TAB PO PRN ×4 (02:08→22:23)
[2017-06-30] MEDS: traMADol 50 MG TAB PO PRN ×3 (04:05→20:09)
[2017-06-30] MEDS: PANTOPRAZOLE (EC) 40 MG TAB PO SCH (05:22)
[2017-06-30] MEDS: METHYLPRED. NA SUCC 1,000 MG in DEXTROSE 5% 50 ML IVPB SCH (08:33)
[2017-06-30] MEDS: CHOLECALCIFEROL 1,000 UNIT TAB PO SCH (08:35)
[2017-06-30] MEDS: GABAPENTIN 100 MG CAP PO SCH ×3 (08:35→20:09)
--- NOTE | 2017-06-30 13:41 | PN ---
Date/Time of Note Date/Time of Note DATE: 06/30/17 TIME: 13:40 Assessment/Plan VTE Prophylaxis VTE Prophylaxis Intervention: LMWH Lines/Catheters IV Catheter Type (from Nrsg): Saline Lock Urinary Cath still in place: No (Self straight cath) Assessment/Plan Chief Complaint/Hosp Course 26 yo female with chronic back pain, reported history of transverse myelitis leading to RLE weakeness presenting now with LLE numbness LLE numbness, h/o transvere myelitis leading to RLE weakness: - No evidence of demyelinating disease - Ok for discharge per Dr Rodriguez from neurology - Stop steroids - Pending transfer to [facility] acceptance Tramadol for pain Problems: Subjective 24 Hr Interval Summary Free Text/Dictation Thoracic MRI ok as well Cleared for discharge to acute rehab Working w PT Exam/Review of Systems Vital Signs Vitals Vital Signs Date Time Temp Pulse Resp B/P Pulse Ox O2 Delivery O2 Flow Rate FiO2 06/30/17 12:00 67 06/30/17 07:08 97.6 21 123/76 96 06/27/17 02:00 Room Air Intake and Output 06/29/17 06/29/17 06/30/17 15:00 23:00 07:00 Intake Total 800 ml 500 ml Output Total 800 ml 1000 ml Balance 0 ml -500 ml Exam Constitutional: alert, oriented, well developed Psych: nl mood/affect, no complaints Head: atraumatic, normocephalic Eyes: EOMI, PERRL, nl conjunctiva, nl lids, nl sclera ENMT: nl external ears & nose, nl lips & teeth, nl nasal mucosa & septum Neck: non-tender, supple Respiratory: clear to auscultation, normal air movement Cardiovascular: nl pulses, regular rate and rhythm Gastrointestinal: nl liver, spleen, non-tender, soft Musculoskeletal: nl extremities to inspection, nl gait and stance Extremities: normal pulses Neurological: FLOOR TECHNICIAN II-XII intact, nl mental status, nl speech, nl strength Skin: nl turgor, No rash or lesions Lymph: nl lymph nodes Results Result Diagram: 06/27/1744 06/27/1744 Results 24 hrs Laboratory Tests Test 06/29/17 14:32 Free Thyroxine 0.86 Medications Medications Current Medications Methylprednisolone Sodium Succinate/ Dextrose (Solu-Medrol/D5W) 50 ml @ 100 mls /hr DAILY IVPB Last administered on 06/30/17 08:33; Admin Dose 100 MLS/HR; Start 06/27/17 at 03:00; Stop 07/02/17 at 02:59 Pantoprazole (Protonix Tab) 40 mg DAILY@06 PO Last administered on 06/30/17 05 :22; Admin Dose 40 MG; Start 06/27/17 at 06:00 Ondansetron HCl (Zofran Tab) 4 mg Q6H PRN PO NAUSEA AND/OR VOMITING; Start at 02:30 Acetaminophen (Tylenol Tab) 650 mg Q6H PRN PO PAIN LEVEL 1-3 OR FEVER; Start 06/27/17 at 02:30 Docusate Sodium (Colace) 100 mg Q12H PRN PO CONSTIPATION; Start 06/27/17 at 02 :30 Bisacodyl (Dulcolax) 5 mg DAILY PRN PO CONSTIPATION; Start 06/27/17 at 02:30 Acetaminophen/ Hydrocodone Bitart ([place]iking (5/325)) 1 tab Q6H PRN PO PAIN Last administered on 06/30/17 08:35; Admin Dose 1 TAB; Start 06/27/17 at 07:00 Gabapentin (Neurontin) 200 mg TID PO Last administered on 06/30/17 08:35; Admin Dose 200 MG; Start 06/27/17 at 09:00 Cholecalciferol (Vitamin D) 5,000 unit DAILY PO Last administered on 06/30/17 08:35; Admin Dose 5,000 UNIT; Start 06/27/17 at 09:08 Ondansetron HCl (Zofran Inj) 4 mg Q6H PRN IV NAUSEA AND/OR VOMITING Last administered on 06/29/17 23:26; Admin Dose 4 MG; Start 06/27/17 at 18:30 Tramadol HCl (Ultram) 50 mg Q6H PRN PO PAIN Last administered on 06/30/17 04: 05; Admin Dose 50 MG; Start 06/28/17 at 13:00 Morphine Sulfate (morphine) 2 mg Q4H PRN IV SEVERE PAIN LEVEL 7-10 Last administered on 06/30/17 06:44; Admin Dose 2 MG; Start 06/30/17 at 00:30 JOSÉ LUIS ISBELL MD Jun 30, 2017 13:41
[2017-06-30] MEDS: ACETAMINOPHEN 325 MG TAB PO PRN (21:24)
[2017-07-01] VITALS (12 sets, daily range): BP systolic 98–150; BP diastolic 53–93; PULSE 56–98; RESP 18–20
[2017-07-01] MEDS: traMADol 50 MG TAB PO PRN ×3 (04:12→17:29)
[2017-07-01] MEDS: HYDROCODONE/APAP (5/325) TAB PO PRN ×3 (05:43→19:53)
[2017-07-01] MEDS: PANTOPRAZOLE (EC) 40 MG TAB PO SCH (05:43)
[2017-07-01] MEDS: GABAPENTIN 100 MG CAP PO SCH ×3 (09:32→21:37)
[2017-07-01] MEDS: CHOLECALCIFEROL 1,000 UNIT TAB PO SCH (09:32)
--- NOTE | 2017-07-01 15:01 | PN ---
Date/Time of Note Date/Time of Note DATE: 07/01/17 TIME: 15:00 Assessment/Plan VTE Prophylaxis VTE Prophylaxis Intervention: LMWH Lines/Catheters IV Catheter Type (from Nrsg): Peripheral IV Assessment/Plan Chief Complaint/Hosp Course 26 yo female with chronic back pain, reported history of transverse myelitis leading to RLE weakeness presenting now with LLE numbness of unclear etiology. Workup unremarkable. Pending transfer to acute rehab LLE numbness, h/o transvere myelitis leading to RLE weakness: - No evidence of demyelinating disease - Ok for discharge per Dr Rodriguez from neurology - Dc steroids - Pending transfer to [facility] Tramadol for pain PRN Problems: Subjective 24 Hr Interval Summary Free Text/Dictation Patient very disappointed we have not be able to find a cause of her symptoms, quite tearful. She has been told this by numerous doctors previous and quite disappointing to not have explanation. Eager to be transferred to acute rehab Exam/Review of Systems Vital Signs Vitals Vital Signs Date Time Temp Pulse Resp B/P Pulse Ox O2 Delivery O2 Flow Rate FiO2 07/01/17 12:05 78 07/01/17 11:38 97.9 18 98/53 99 Intake and Output 06/30/17 06/30/17 07/01/17 15:00 23:00 07:00 Intake Total 900 ml Output Total 1900 ml Balance -1000 ml Results Result Diagram: 06/27/17 0744 06/27/17 0744 Medications Medications Current Medications Pantoprazole (Protonix Tab) 40 mg DAILY@06 PO Last administered on 07/01/17 05 :43; Admin Dose 40 MG; Start 06/27/17 at 06:00 Ondansetron HCl (Zofran Tab) 4 mg Q6H PRN PO NAUSEA AND/OR VOMITING; Start at 02:30 Acetaminophen (Tylenol Tab) 650 mg Q6H PRN PO PAIN LEVEL 1-3 OR FEVER Last administered on 06/30/17 21:24; Admin Dose 650 MG; Start 06/27/17 at 02:30 Docusate Sodium (Colace) 100 mg Q12H PRN PO CONSTIPATION; Start 06/27/17 at 02 :30 Bisacodyl (Dulcolax) 5 mg DAILY PRN PO CONSTIPATION; Start 06/27/17 at 02:30 Acetaminophen/ Hydrocodone Bitart (Mittie (5/325)) 1 tab Q6H PRN PO PAIN Last administered on 07/01/17 13:32; Admin Dose 1 TAB; Start 06/27/17 at 07:00 Gabapentin (Neurontin) 200 mg TID PO Last administered on 07/01/17 13:32; Admin Dose 200 MG; Start 06/27/17 at 09:00 Cholecalciferol (Vitamin D) 5,000 unit DAILY PO Last administered on 07/01/17 09:32; Admin Dose 5,000 UNIT; Start 06/27/17 at 09:08 Ondansetron HCl (Zofran Inj) 4 mg Q6H PRN IV NAUSEA AND/OR VOMITING Last administered on 06/29/17 23:26; Admin Dose 4 MG; Start 06/27/17 at 18:30 Tramadol HCl (Ultram) 50 mg Q6H PRN PO PAIN Last administered on 07/01/17 09: 32; Admin Dose 50 MG; Start 06/28/17 at 13:00 Morphine Sulfate (morphine) 2 mg Q4H PRN IV SEVERE PAIN LEVEL 7-10 Last administered on 06/30/17 06:44; Admin Dose 2 MG; Start 06/30/17 at 00:30 JOSÉ LUIS ISBELL MD Jul 01, 2017 15:01
[2017-07-01] MEDS: ACETAMINOPHEN 325 MG TAB PO PRN (17:29)
--- NOTE | 2017-07-01 18:00 | EN ---
Date/Time of Note Date/Time of Note DATE: 07/01/17 TIME: 17:59 Event Note Medicine Medicine Event Note Patient was going to bathroom and her crutch slipped causing her to fall backwards and hit the back of her head and neck. No new neurologic deficits. CN II-XII intact. Point tender on posterior upper neck midline beneath occiput. Will do CT scan JOSÉ LUIS ISBELL MD Jul 01, 2017 18:00
[2017-07-01] MEDS: ONDANSETRON 4 MG INJ IV PRN (18:24)
[2017-07-01] MEDS ORDERED: IBUPROFEN 200 MG TAB PO ONE (18:30)
[2017-07-01] MEDS: morphine 2 MG INJ IV PRN (21:37)
[2017-07-02] VITALS (9 sets, daily range): BP systolic 104–117; BP diastolic 56–66; PULSE 66–97; RESP 16–18
[2017-07-02] MEDS: morphine 2 MG INJ IV PRN ×3 (02:03→21:10)
[2017-07-02] MEDS: PANTOPRAZOLE (EC) 40 MG TAB PO SCH (05:57)
[2017-07-02] MEDS: GABAPENTIN 100 MG CAP PO SCH ×3 (07:50→21:10)
[2017-07-02] MEDS: CHOLECALCIFEROL 1,000 UNIT TAB PO SCH (07:50)
[2017-07-02] MEDS: HYDROCODONE/APAP (5/325) TAB PO PRN ×2 (08:21→18:19)
--- NOTE | 2017-07-02 09:31 | RADRPT ---
PROCEDURE: CT Brain without contrast. CLINICAL INDICATION: Trauma TECHNIQUE: A CT of the brain was performed on a multidetector CT scanner utilizing axial imaging f rom the skull base through the vertex without IV contrast. Multiplanar reformatted images were made . Images were reviewed on a PACS workstation. The CTDIvol is 45 mGy and the DLP is 720 mGycm. DICOM images are available. One or more of the following dose reduction techniques were utilized: 1.) Automated exposure control 2.) Adjustment of the mA +/- kV according to patient's size 3.) Use of iterative reconstruction technique. COMPARISON: MRI brain June 28, 2017 FINDINGS: There is no intracranial hemorrhage, mass effect, or midline shift. No extra-axial fluid collection is seen. The ventricles and sulci are normal in size and configuration. The density of the brain is normal, and the kim white matter differentiation appears well-preserved. The visualized paranasal sinuses and osseous structures are grossly unremarkable. IMPRESSION: 1. No evidence of acute intracranial pathology. 2. The brain is normal in appearance. .Cordell Osborn MD, MD Date Time Electronically viewed and signed by .Cordell Osborn MD, MD on 07/02/2017 09:30 .A/
--- NOTE | 2017-07-02 10:41 | DS ---
Date/Time of Note Date/Time of Note DATE: 07/02/17 TIME: 10:39 Discharge Summary Admission/Discharge Info Admit Date/Time Jun 27, 2017 at 01:38 Discharge Date/Time Discharge Diagnosis Transverse myelitis Patient Condition: Fair Hospital Course 26 yo female with chronic back pain, reported history of transverse myelitis leading to RLE weakeness presenting now with LLE numbness of unclear etiology. She was evaluated by Dr Rodriguez of neurology. She recommended MRIs to evaluate for demylelinating disease. Brain, cervical/thoracic spinal MRIs were performed which showed no etiology of the patient's complaint. Serologic workup was also unrevealing. Dr Rodriguez recommended no further workup for her neuropathy. The patient was evaluated by PT who recommended rehab transfer. The patient suffered a mechanical fall from her crutches slipping and hit her posterior head/at occiput. Head CT was performed showing no pathology. Home Meds Reported Medications Acetaminophen* (Acephen*) 650 Mg Supp, 650 MG DE Q4H Y for PAIN, SUPP 06/27/17 Tramadol HCl (Tramadol HCl) 50 Mg Tablet, 50 MG PO TID, #90 TAB 06/27/17 Gabapentin* (Gabapentin*) 100 Mg Capsule, 200 MG PO TID, #180 CAP 06/27/17 Cholecalciferol* (Vitamin D*) 400 Unit Tablet, 5000 UNIT PO DAILY, TAB 06/27/17 Primary Care Provider Not On Staff Doctor JOSÉ LUIS ISBELL MD Jul 02, 2017 10:41
[2017-07-03] VITALS (8 sets, daily range): BP systolic 109–146; BP diastolic 59–71; PULSE 84–89; RESP 16–28
[2017-07-03] MEDS: HYDROCODONE/APAP (5/325) TAB PO PRN ×2 (03:06→11:39)
[2017-07-03] MEDS: PANTOPRAZOLE (EC) 40 MG TAB PO SCH (06:17)
[2017-07-03] MEDS: morphine 2 MG INJ IV PRN ×2 (06:52→15:44)
[2017-07-03] MEDS: GABAPENTIN 100 MG CAP PO SCH ×2 (08:40→11:39)
[2017-07-03] MEDS: CHOLECALCIFEROL 1,000 UNIT TAB PO SCH (08:40)
== END 2017-07-03 15:48 | DRG 948 ==
LOC: FTE 19:01 → TEL 06-27 01:38
PROVIDERS: ADMIT Family Medicine; ATTEND Family Medicine
DX: R53.1 Weakness (principal); G09 Sequelae of inflammatory diseases of central nervous system; G62.9 Polyneuropathy, unspecified; I10 Essential (primary) hypertension; F40.240 Claustrophobia; G89.29 Other chronic pain; R32 Unspecified urinary incontinence; R20.0 Anesthesia of skin; M54.9 Dorsalgia, unspecified; H55.00 Unspecified nystagmus; R27.0 Ataxia, unspecified
CPT/HCPCS: 70450; 70553; 72156; 72157; 80053; 80061; 82607; 82652; 83036; 83735; 84439; 84443; 85025; 85610; 85730; 87081; 96374; 96375; 96376; 97110; 97116; 97163; J2060; J2270; J2405; J2930; P9612

== ENCOUNTER 2017-07-03 12:42 | Inpatient (IN) | payer BC ==
[~2017-07-03] VITALS: Ht 165.1 cm; Wt 63.6 kg
[~2017-07-03 12:42] MED LIST: CHOL400T10 PO; GABA100C14 PO; TRAM50TA2 PO; TYL650R PR
[2017-07-03 17:00] VITALS: BP 125/80; PULSE 85; RESP 18; Ht 165.1 cm; Wt 63.6 kg
[2017-07-03] MEDS ORDERED: MAGNESIUM HYDROXIDE 30ML CUP PO PRN (17:00)
[2017-07-03] MEDS ORDERED: LACTULOSE 30ML CUP PO PRN (17:00)
[2017-07-03] MEDS ORDERED: BISACODYL 10 MG SUPP PR PRN (17:00)
[2017-07-03] MEDS ORDERED: ONDANSETRON 4 MG INJ IV PRN (17:56)
[2017-07-03] MEDS ORDERED: ONDANSETRON 4 MG TAB PO PRN (17:56)
[2017-07-03] MEDS ORDERED: DOCUSATE SODIUM 100 MG CAP PO PRN (17:56)
[2017-07-03] MEDS ORDERED: NACL 0.9% 3 ML SYG IV SCH (17:56)
[2017-07-03] MEDS ORDERED: BISACODYL (EC) 5 MG TAB PO PRN (17:56)
[2017-07-03 19:18] LABS: ADD UMIC NO; UR ASCORBIC ACID NEGATIVE (NEGATIVE); UR BILIRUBIN (Dip) NEGATIVE (NEGATIVE); UR BLOOD (Dip) NEGATIVE (NEGATIVE); UR CLARITY CLEAR (CLEAR); UR COLOR STRAW (YELLOW); UR GLUCOSE (Dip) NEGATIVE (NEGATIVE); UR KETONES (Dip) NEGATIVE (NEGATIVE); UR LEUKOCYTE ESTERASE (Dip) NEGATIVE Leu/ul (NEGATIVE); UR NITRITE (Dip) NEGATIVE (NEGATIVE); UR SPECIFIC GRAVITY (Dip) 1.013 (1.003-1.030); UR TOTAL PROTEIN (Dip) NEGATIVE (NEGATIVE); UR UROBILINOGEN (Dip) NEGATIVE (NEGATIVE)
[2017-07-03 20:00] VITALS: BP 111/56; RESP 18
[2017-07-03] MEDS: HYDROCODONE/APAP (5/325) TAB PO PRN (20:44)
[2017-07-03] MEDS: SENNA TAB PO SCH (20:47)
[2017-07-03] MEDS: GABAPENTIN 100 MG CAP PO SCH (21:40)
[2017-07-04 02:00] VITALS: BP 114/67; RESP 18
[2017-07-04] MEDS: HYDROCODONE/APAP (5/325) TAB PO PRN ×4 (02:32→21:54)
[2017-07-04] MEDS: PANTOPRAZOLE (EC) 40 MG TAB PO SCH (06:23)
[2017-07-04] MEDS: morphine 2 MG INJ IV PRN ×2 (06:35→12:53)
[2017-07-04 07:30] VITALS: BP 105/61; RESP 18
[2017-07-04 07:33] LABS: BASOPHILS % 0.1 % (0.0-2.0); EOSINOPHILS % 0.3 % (0.0-7.0); HEMATOCRIT 34.9 % (37.0-47.0); HEMOGLOBIN 12.1 g/dl (12.0-16.0); LYMPHOCYTES # 2.7 10^3/ul (0.8-2.9); LYMPHOCYTES % 37.2 % (15.0-51.0); MEAN CORPUSCULAR HEMOGLOBIN 30.5 pg (29.0-33.0); MEAN CORPUSCULAR HGB CONC 34.7 g/dl (32.0-37.0); MEAN CORPUSCULAR VOLUME 87.9 fl (82.0-101.0); MEAN PLATELET VOLUME 10.6 fl (7.4-10.4); MONOCYTE # 0.5 10^3/ul (0.3-0.9); MONOCYTES % 7.2 % (0.0-11.0); NEUTROPHILS % 54.2 % (39.0-77.0); PLATELET COUNT 265 10^3/UL (140-415); RED BLOOD COUNT 3.97 10^6/ul (4.20-5.40); RED CELL DISTRIBUTION WIDTH 14.4 % (11.5-14.5); WHITE BLOOD COUNT 7.3 10^3/ul (4.8-10.8)
[2017-07-04 08:05] LABS: ALBUMIN 3.8 g/dl (3.3-4.9); ALBUMIN/GLOBULIN RATIO 1.35; BILIRUBIN,INDIRECT 0.3 mg/dl (0-1.1); BILIRUBIN,TOTAL 0.3 mg/dl (0.2-1.3); CALCIUM 9.4 mg/dl (8.4-10.2); CREATININE 0.72 mg/dl (0.44-1.00); POTASSIUM 4.3 mmol/L (3.5-5.1); TOTAL PROTEIN 6.6 g/dl (6.1-8.1)
[2017-07-04] MEDS: CHOLECALCIFEROL 1,000 UNIT TAB PO SCH (09:13)
[2017-07-04] MEDS: GABAPENTIN 100 MG CAP PO SCH ×3 (09:16→20:47)
--- NOTE | 2017-07-04 13:49 | CONS ---
DATE OF ADMISSION: 07/03/2017 DATE OF CONSULTATION: 07/04/2017 REHABILITATION POST ADMISSION PHYSICIAN EVALUATION REHABILITATION IMPAIRMENT CATEGORY: Transverse myelitis with paraplegia. Active Comorbidities: 1. Neuropathic pain 2. Neurogenic bladder. 3. Impairments in self-care and mobility. HISTORY OF PRESENT ILLNESS: The patient is a very pleasant 26-year-old female with a history of transverse myelitis with notable right lower extremity weakness for which she ambulated with the use of bilateral crutches who now was noted to have worsening left lower extremity weakness with essential paraplegia. Workup was consistent with transverse myelitis flare. The patient did attempt to go home from [facility]; however, was noted to have significant impairments in self-care and mobility and returned to the hospital. The patient has been cleared to transfer to the rehabilitation unit for comprehensive interdisciplinary rehab care. FUNCTIONAL HISTORY: Prior to recent events, she was modified independent for self-care and mobility tasks. Currently, she requires moderate assist for self- care and mobility tasks. She reports using bilateral crutches for mobility, and had a Right AFO in the past for her Right LE weakness and foot drop I have reviewed the preadmission screen and the patient's current functional status is consistent with the preadmission screen. SOCIAL HISTORY: The patient reports living on the upper floor of an apartment complex. She does report there is elevator access. PAST MEDICAL HISTORY: 1. Transverse myelitis. 2. Endometriosis. 3. Neurogenic bladder for which she does do self-catheterization technique. CURRENT MEDICATIONS: 1. Tylenol p.r.n. 2. Neurontin 200 mg p.o. t.i.d. 3. Reddell p.r.n. 4. Zofran p.r.n. 5. Ultram p.r.n. ALLERGIES: ASPIRIN. PHYSICAL EXAMINATION: VITAL SIGNS: She is currently afebrile with stable vital signs. HEENT: The extraocular motion intact. Oropharynx clear. NECK: Supple. LUNGS: Clear anteriorly. CARDIAC: S1, S2. ABDOMEN: Soft, nontender, positive bowel sounds. NEUROLOGIC: She is awake, alert and oriented x3. She demonstrates good strength in bilateral upper extremity. She has 3- strength in the left lower extremity. She has flaccid right lower extremity. PLAN: The patient has been admitted for comprehensive interdisciplinary acute rehab and is anticipated to tolerate 3 hours of daily therapy in divided doses for at least 5/7 days a week. Treatment plan will include: 1. Physical therapy to focus on bed mobility, transfers, wheelchair mobility and progressive ambulation as tolerated. We will have patient fitted for left toe off AFO in addition to right knee brace and right AFO. 2. Occupational therapy to focus on hygiene, grooming, dressing, bathing, and toileting activities with the goal of having the patient reach standby assist level. 3. Rehabilitation nursing for carryover of therapeutic interventions, the goal of continent of bowel, and the goal of improved bladder management and review of self-catheterization techniques. The patient reports that in the past she has been on Flomax; however, it had not been refilled and she had noted increased urinary retention subsequently. Will resume Flomax 0.4 mg p.o. at bedtime. REHABILITATION BARRIER: Neurogenic bladder. INTERVENTION FOR BARRIER: Bladder training program. ESTIMATED LENGTH OF STAY: 10 days. DISPOSITION GOAL: Home. I acknowledge that I performed a full physical examination on this patient within 24 hours of admission to the rehabilitation unit and believe the patient is a good candidate for comprehensive interdisciplinary rehab care and is anticipated to make reasonable goals in a reasonable period of time as outlined above. Dictated By: SHANELLE DOLAN/JONO Conf#: [id number] DID#: [id number]
[2017-07-04 14:00] VITALS: BP 129/80; RESP 18
--- NOTE | 2017-07-04 14:40 | CONS ---
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 1. LLE numbness, likely peripheral neuropathy with underlying vitamin D deficiency. No evidence of demyelinating disease. Status: Acute -Start vitamin D/B12 and multivitamin supplementation. -Obtain a full thyroid panel to rule out other etiology. 2. 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 3. Neurogenic bladder. Status: Chronic -Continue with in and out self-catheterization. DVT prophylaxis: Ambulation Approximately 60 minutes was spent on this consultation. Patient is seen in collaboration with . Problems: Consultation Date/Type/Reason Admit Date/Time Jul 03, 2017 at 16:07 Type of Consultation: Internal medicine Reason for Consultation Medical management Hx of Present Illness This is a 26-year-old female with transverse myelitis with right lower extremity weakness/flaccid paralysis, endometriosis, neurogenic bladder, who was admitted at [facility] for left lower extremity numbness. Initially patient was treated with steroids for possible concern of transverse myelitis flares. Patient had extensive neurological workup by neurology evaluation with no neurological explanation of her left lower extremity numbness. There was no evidence of demyelinating disease. Steroids were discontinued. Patient was then seen by physical therapy. During the course of hospitalization [facility], she was noted with low vitamin D and the recommendation was to continue patient on B12, D and multivitamin supplementation. Patient was then accepted to acute rehabilitation unit for further comprehensive interdisciplinary rehab care. At my encounter with the patient, she denied any chest pain, shortness of breath , palpitation, nausea, vomiting, abdominal pain, dizziness, headache, or any new focal deficit. Patient's right lower extremity remains flaccid. She continued to report left lower extremity numbness. Current labs are unremarkable. Vital signs within acceptable range. Past Medical History See HPI Past Surgical History See HPI Social History Patient denied a history of alcohol, smoking or illicit drug use. Smoking Status: Never smoker Exam/Review of Systems Vital Signs Vitals Vital Signs Date Time Temp Pulse Resp B/P Pulse Ox O2 Delivery O2 Flow Rate FiO2 12/5/17 07:30 98.6 72 18 105/61 100 07/03/17 17:00 Room Air Intake and Output 07/03/17 07/03/17 07/04/17 15:00 23:00 07:00 Intake Total 300 ml 400 ml Output Total 200 ml 900 ml Balance 100 ml -500 ml Exam General: Well developed,adequately built, not in any acute distress . HEENT: Normocephalic, Atraumatic, No laceration or hematoma; Eyes: PEERL, Conjunctiva clear, Anicteric sclera Neck: Supple without any lymphadenopathy, nontender, no JVD, no carotid bruits, trachea midline, no thyromegaly Cardiac: S1, S2 auscultated, regular rhythm and rate, no mumurs or gallop Pulmonary: Normal respiratory effort. Chest clear to auscultation bilaterally, no adventitious breath sounds GI: Abdomen normal to inspection. Soft, non tender, non- distended, no masses, no rebound tenderness or guarding. Bowel sounds active on all four quadrants Genitourinary: Deferred Extremities: Right lower extremity with flaccid paralysis. Left lower extremity with reported numbness. Full range of motion on all other extremities other than right lower extremity. No cyanosis, clubbing, or edema. Pulses [2+] bilaterally. Neurologic: Alert to person, place, time, and situation. Affect appropriate, intact sensation. Skin: Clean,dry, and intact. No ecchymosis, no rashes, or lesions Results Result Diagram: 07/04/17 0655 07/04/17 0654 Results 24 hrs Laboratory Tests Test 07/03/17 18:40 07/04/17 06:54 07/04/17 06:55 Urine Color STRAW Urine Clarity CLEAR Urine pH 7.0 Urine Specific [place] 1.013 Urine Ketones NEGATIVE Urine Nitrite NEGATIVE Urine Bilirubin NEGATIVE Urine Urobilinogen NEGATIVE Urine Leukocyte Esterase NEGATIVE Urine Hemoglobin NEGATIVE Urine Glucose NEGATIVE Urine Total Protein NEGATIVE Sodium Level 139 Potassium Level 4.3 Chloride Level 101 Carbon Dioxide Level 29 Anion Gap 13 Blood Urea Nitrogen 17 Creatinine 0.72 Glucose Level 83 Calcium Level 9.4 Total Bilirubin 0.3 Direct Bilirubin 0.00 Indirect Bilirubin 0.3 Aspartate Amino Transf (AST/SGOT) 42 Alanine Aminotransferase (ALT/SGPT) 85 H Alkaline Phosphatase 56 Total Protein 6.6 Albumin 3.8 Globulin 2.80 Albumin/Globulin Ratio 1.35 White Blood Count 7.3 # Red Blood Count 3.97 L Hemoglobin 12.1 Hematocrit 34.9 L Mean Corpuscular Volume 87.9 Mean Corpuscular Hemoglobin 30.5 Mean Corpuscular Hemoglobin Concent 34.7 Red Cell Distribution Width 14.4 Platelet Count 265 Mean Platelet Volume 10.6 H Neutrophils % 54.2 Lymphocytes % 37.2 Monocytes % 7.2 Eosinophils % 0.3 Basophils % 0.1 Nucleated Red Blood Cells % 0.0 Neutrophils # 4.0 Lymphocytes # 2.7 Monocytes # 0.5 Eosinophils # 0.0 Basophils # 0.0 Nucleated Red Blood Cells # 0.0 Medications Medications Current Medications Senna (Senokot) 1 tab HS PO ; Start 07/03/17 at 21:00 Magnesium Hydroxide (Milk Of Mag) 30 ml BID PRN PO CONSTIPATION; Start at 17:00 Lactulose (Enulose) 20 gm DAILY PRN PO CONSTIPATION; Start 07/03/17 at 17:00 Bisacodyl (Dulcolax Supp) 10 mg DAILY PRN [place] CONSTIPATION; Start 07/03/17 at 17 :00 Pantoprazole (Protonix Tab) 40 mg DAILY@06 PO Last administered on 07/04/17 06 :23; Admin Dose 40 MG; Start 07/03/17 at 17:56 Ondansetron HCl (Zofran Tab) 4 mg Q6H PRN PO NAUSEA AND/OR VOMITING; Start 07/03/17 at 17:56 Acetaminophen (Tylenol Tab) 650 mg Q6H PRN PO PAIN LEVEL 1-3 OR FEVER; Start 07/03/17 at 17:56 Docusate Sodium (Colace) 100 mg Q12H PRN PO CONSTIPATION; Start 07/03/17 at 17: 56 Bisacodyl (Dulcolax) 5 mg DAILY PRN PO CONSTIPATION; Start 07/03/17 at 17:56 Acetaminophen/ Hydrocodone Bitart ([place] (5/325)) 1 tab Q6H PRN PO PAIN Last administered on 07/04/17 09:19; Admin Dose 1 TAB; Start 07/03/17 at 17:56 Gabapentin (Neurontin) 200 mg TID PO Last administered on 07/04/17 12:56; Admin Dose 200 MG; Start 07/03/17 at 17:56 Cholecalciferol (Vitamin D) 5,000 unit DAILY PO Last administered on 07/04/17 09:13; Admin Dose 5,000 UNIT; Start 07/03/17 at 17:56 Ondansetron HCl (Zofran Inj) 4 mg Q6H PRN IV NAUSEA AND/OR VOMITING; Start 07/03/17 at 17:56 Tramadol HCl (Ultram) 50 mg Q6H PRN PO PAIN; Start 07/03/17 at 17:56 Morphine Sulfate (morphine) 2 mg Q4H PRN IV SEVERE PAIN LEVEL 7-10 Last administered on 07/04/17 12:53; Admin Dose 2 MG; Start 07/03/17 at 17:56 Tamsulosin HCl (Flomax) 0.4 mg HS PO ; Start 07/04/17 at 21:00 Baclofen (Lioresal) 10 mg BID PO ; Start 07/04/17 at 21:00 Cyanocobalamin (Vitamin B12) 100 mcg DAILY PO ; Start 07/05/17 at 09:00 Ergocalciferol (Drisdol) 50,000 unit [place]@09 PO ; Start 07/05/17 at 09:00; Stop at 09:01 Multivitamins Therapeutic (Theragran) 1 tab DAILY PO ; Start 07/05/17 at 09:00 LANIE ALEXIS NP Jul 04, 2017 14:40
[2017-07-04 16:19] LABS: FREE T3 5.11 pg/ml (2.77-5.27); T3 UPTAKE 32.1 % (23.5-40.5); THYROID STIMULATING HORMONE 1.15 MIU/L (0.465-4.680)
[2017-07-04] MEDS: traMADol 50 MG TAB PO PRN (17:56)
[2017-07-04 20:00] VITALS: BP 107/62; RESP 18
[2017-07-04] MEDS: SENNA TAB PO SCH (20:46)
[2017-07-04] MEDS: TAMSULOSIN (SR) 0.4 MG CAP PO SCH (20:47)
[2017-07-04] MEDS: BACLOFEN 10 MG TAB PO SCH (20:47)
[2017-07-05 02:00] VITALS: BP 118/64; RESP 18
[2017-07-05] MEDS: PANTOPRAZOLE (EC) 40 MG TAB PO SCH (05:44)
[2017-07-05 07:30] VITALS: BP 108/57; RESP 18
[2017-07-05 08:00] VITALS: BP 108/57; PULSE 93; RESP 18
[2017-07-05] MEDS ORDERED: ERGOCALCIFEROL 50,000 UNIT CAP PO SCH (09:00)
[2017-07-05] MEDS: HYDROCODONE/APAP (5/325) TAB PO PRN ×3 (09:25→22:18)
[2017-07-05] MEDS: CHOLECALCIFEROL 1,000 UNIT TAB PO SCH (09:26)
[2017-07-05] MEDS: MULTIVITAMINS THERAPEUTIC TAB PO SCH (09:26)
[2017-07-05] MEDS: GABAPENTIN 100 MG CAP PO SCH ×3 (09:26→21:03)
[2017-07-05] MEDS: BACLOFEN 10 MG TAB PO SCH ×2 (09:26→21:02)
[2017-07-05] MEDS: CYANOCOBALAMIN 100 MCG TAB PO SCH (09:26)
--- NOTE | 2017-07-05 12:01 | CONS ---
Date/Time of Note Date/Time of Note DATE: 07/05/17 TIME: 12:01 Consult Date/Type/Reason Admit Date/Time Jul 03, 2017 at 16:07 Initial Consult Date Type of Consultation: Internal medicine Subjective No new complaints Objective pulm-cta mod assist Vital Signs Date Time Temp Pulse Resp B/P Pulse Ox O2 Delivery O2 Flow Rate FiO2 07/05/17 08:00 98.6 93 18 108/57 Room Air 07/05/17 07:30 99 Intake and Output 07/04/17 07/04/17 07/05/17 15:00 23:00 07:00 Intake Total 980 ml 240 ml Output Total 360 ml 750 ml 400 ml Balance -360 ml 230 ml -160 ml Results/Medications Result Diagram: 07/04/17 0655 07/04/17 0654 Results 24 hrs Laboratory Tests Test 07/04/17 15:01 Thyroid Stimulating Hormone (TSH) 1.150 Free Thyroxine 1.00 Free Thyroxine Index 2.86 Thyroxine (T4) 8.9 Free Triiodothyronine (T3) pg/mL 5.11 Triiodothyronine (T3) Uptake 32.1 Medications Current Medications Senna (Senokot) 1 tab HS PO Last administered on 07/04/17 20:46; Admin Dose 1 TAB; Start 07/03/17 at 21:00 Magnesium Hydroxide (Milk Of Mag) 30 ml BID PRN PO CONSTIPATION; Start at 17:00 Lactulose (Enulose) 20 gm DAILY PRN PO CONSTIPATION; Start 07/03/17 at 17:00 Bisacodyl (Dulcolax Supp) 10 mg DAILY PRN [place] CONSTIPATION; Start 07/03/17 at 17 :00 Pantoprazole (Protonix Tab) 40 mg DAILY@06 PO Last administered on 07/05/17 05 :44; Admin Dose 40 MG; Start 07/03/17 at 17:56 Ondansetron HCl (Zofran Tab) 4 mg Q6H PRN PO NAUSEA AND/OR VOMITING; Start 07/03/17 at 17:56 Acetaminophen (Tylenol Tab) 650 mg Q6H PRN PO PAIN LEVEL 1-3 OR FEVER; Start 07/03/17 at 17:56 Docusate Sodium (Colace) 100 mg Q12H PRN PO CONSTIPATION; Start 07/03/17 at 17: 56 Bisacodyl (Dulcolax) 5 mg DAILY PRN PO CONSTIPATION; Start 07/03/17 at 17:56 Acetaminophen/ Hydrocodone Bitart ([place] (5/325)) 1 tab Q6H PRN PO PAIN Last administered on 07/05/17 09:25; Admin Dose 1 TAB; Start 07/03/17 at 17:56 Gabapentin (Neurontin) 200 mg TID PO Last administered on 07/05/17 09:26; Admin Dose 200 MG; Start 07/03/17 at 17:56 Cholecalciferol (Vitamin D) 5,000 unit DAILY PO Last administered on 07/05/17 09:26; Admin Dose 5,000 UNIT; Start 07/03/17 at 17:56 Ondansetron HCl (Zofran Inj) 4 mg Q6H PRN IV NAUSEA AND/OR VOMITING; Start 07/03/17 at 17:56 Tramadol HCl (Ultram) 50 mg Q6H PRN PO PAIN Last administered on 07/04/17 17: 56; Admin Dose 50 MG; Start 07/03/17 at 17:56 Tamsulosin HCl (Flomax) 0.4 mg HS PO Last administered on 07/04/17 20:47; Admin Dose 0.4 MG; Start 07/04/17 at 21:00 Baclofen (Lioresal) 10 mg BID PO Last administered on 07/05/17 09:26; Admin Dose 10 MG; Start 07/04/17 at 21:00 Cyanocobalamin (Vitamin B12) 100 mcg DAILY PO Last administered on 07/05/17 09 :26; Admin Dose 100 MCG; Start 07/05/17 at 09:00 Ergocalciferol (Drisdol) 50,000 unit We@09 PO ; Start 07/05/17 at 09:00; Stop at 09:01 Multivitamins Therapeutic (Theragran) 1 tab DAILY PO Last administered on 09:26; Admin Dose 1 TAB; Start 07/05/17 at 09:00 Assessment/Plan Additional Assessment/Plan Rehab- Transverse myelitis with paraplegia. Continue treatment plan, orthotics ordered Neuropathic pain Neurogenic bladder- started flomax SHANELLE PORRAS MD Jul 05, 2017 12:01
[2017-07-05] MEDS: traMADol 50 MG TAB PO PRN ×2 (12:48→21:03)
--- NOTE | 2017-07-05 13:23 | CONS ---
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 1. LLE numbness, likely peripheral neuropathy with underlying vitamin D deficiency. No evidence of demyelinating disease. Status: Acute -Continue with vitamin D/B12 and multivitamin supplementation. -We will also consider low-dose gabapentin if her symptoms persist. 2. 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 3. Neurogenic bladder. Status: Chronic -Continue with in and out self-catheterization. DVT prophylaxis: Ambulation Patient is seen in collaboration with . Problems: Consultation Date/Type/Reason Admit Date/Time Jul 03, 2017 at 16:07 Initial Consult Date Type of Consultation: Internal medicine 24 HR Interval Summary Free Text/Dictation No acute distress. Exam/Review of Systems Vital Signs Vitals Vital Signs Date Time Temp Pulse Resp B/P Pulse Ox O2 Delivery O2 Flow Rate FiO2 07/05/17 08:00 98.6 93 18 108/57 Room Air 07/05/17 07:30 99 Intake and Output 07/04/17 07/04/17 07/05/17 15:00 23:00 07:00 Intake Total 980 ml 240 ml Output Total 360 ml 750 ml 400 ml Balance -360 ml 230 ml -160 ml Exam General: Well developed,adequately built, not in any acute distress . HEENT: Normocephalic, Atraumatic, No laceration or hematoma; Eyes: PEERL, Conjunctiva clear, Anicteric sclera Neck: Supple without any lymphadenopathy, nontender, no JVD, no carotid bruits, trachea midline, no thyromegaly Cardiac: S1, S2 auscultated, regular rhythm and rate, no mumurs or gallop Pulmonary: Normal respiratory effort. Chest clear to auscultation bilaterally, no adventitious breath sounds GI: Abdomen normal to inspection. Soft, non tender, non- distended, no masses, no rebound tenderness or guarding. Bowel sounds active on all four quadrants Genitourinary: Deferred Extremities: Right lower extremity with flaccid paralysis. Left lower extremity with reported numbness. Full range of motion on all other extremities other than right lower extremity. No cyanosis, clubbing, or edema. Pulses [2+] bilaterally. Neurologic: Alert to person, place, time, and situation. Affect appropriate, intact sensation. Skin: Clean,dry, and intact. No ecchymosis, no rashes, or lesions Results Result Diagram: 07/04/17 0655 07/04/17 0654 Results 24 hrs Laboratory Tests Test 07/04/17 15:01 Thyroid Stimulating Hormone (TSH) 1.150 Free Thyroxine 1.00 Free Thyroxine Index 2.86 Thyroxine (T4) 8.9 Free Triiodothyronine (T3) pg/mL 5.11 Triiodothyronine (T3) Uptake 32.1 Medications Medications Current Medications Senna (Senokot) 1 tab HS PO Last administered on 07/04/17 20:46; Admin Dose 1 TAB; Start 07/03/17 at 21:00 Magnesium Hydroxide (Milk Of Mag) 30 ml BID PRN PO CONSTIPATION; Start at 17:00 Lactulose (Enulose) 20 gm DAILY PRN PO CONSTIPATION; Start 07/03/17 at 17:00 Bisacodyl (Dulcolax Supp) 10 mg DAILY PRN [place] CONSTIPATION; Start 07/03/17 at 17 :00 Pantoprazole (Protonix Tab) 40 mg DAILY@06 PO Last administered on 07/05/17 05 :44; Admin Dose 40 MG; Start 07/03/17 at 17:56 Ondansetron HCl (Zofran Tab) 4 mg Q6H PRN PO NAUSEA AND/OR VOMITING; Start 07/03/17 at 17:56 Acetaminophen (Tylenol Tab) 650 mg Q6H PRN PO PAIN LEVEL 1-3 OR FEVER; Start 07/03/17 at 17:56 Docusate Sodium (Colace) 100 mg Q12H PRN PO CONSTIPATION; Start 07/03/17 at 17: 56 Bisacodyl (Dulcolax) 5 mg DAILY PRN PO CONSTIPATION; Start 07/03/17 at 17:56 Acetaminophen/ Hydrocodone Bitart ([place] (5/325)) 1 tab Q6H PRN PO PAIN Last administered on 07/05/17 09:25; Admin Dose 1 TAB; Start 07/03/17 at 17:56 Gabapentin (Neurontin) 200 mg TID PO Last administered on 07/05/17 12:49; Admin Dose 200 MG; Start 07/03/17 at 17:56 Cholecalciferol (Vitamin D) 5,000 unit DAILY PO Last administered on 07/05/17 09:26; Admin Dose 5,000 UNIT; Start 07/03/17 at 17:56 Ondansetron HCl (Zofran Inj) 4 mg Q6H PRN IV NAUSEA AND/OR VOMITING; Start 07/03/17 at 17:56 Tramadol HCl (Ultram) 50 mg Q6H PRN PO PAIN Last administered on 07/05/17 12: 48; Admin Dose 50 MG; Start 07/03/17 at 17:56 Tamsulosin HCl (Flomax) 0.4 mg HS PO Last administered on 07/04/17 20:47; Admin Dose 0.4 MG; Start 07/04/17 at 21:00 Baclofen (Lioresal) 10 mg BID PO Last administered on 07/05/17 09:26; Admin Dose 10 MG; Start 07/04/17 at 21:00 Cyanocobalamin (Vitamin B12) 100 mcg DAILY PO Last administered on 07/05/17 09 :26; Admin Dose 100 MCG; Start 07/05/17 at 09:00 Ergocalciferol (Drisdol) 50,000 unit We@09 PO Last administered on 07/05/17 12 :48; Admin Dose 50,000 UNIT; Start 07/05/17 at 09:00; Stop 08/23/17 at 09:01 Multivitamins Therapeutic (Theragran) 1 tab DAILY PO Last administered on 09:26; Admin Dose 1 TAB; Start 07/05/17 at 09:00 LANIE ALEXIS NP Jul 05, 2017 13:23
[2017-07-05 14:00] VITALS: BP 120/66; RESP 18
[2017-07-05 20:00] VITALS: BP 103/60; RESP 18
[2017-07-05] MEDS: SENNA TAB PO SCH ×2 (21:00→21:02)
[2017-07-05] MEDS: TAMSULOSIN (SR) 0.4 MG CAP PO SCH (21:02)
[2017-07-06] MEDS: ACETAMINOPHEN 325 MG TAB PO PRN (01:07)
[2017-07-06 02:00] VITALS: BP 110/65; RESP 18
[2017-07-06] MEDS: PANTOPRAZOLE (EC) 40 MG TAB PO SCH (06:12)
[2017-07-06] MEDS: HYDROCODONE/APAP (5/325) TAB PO PRN ×3 (06:12→16:24)
[2017-07-06 08:30] VITALS: BP 144/85; RESP 18
[2017-07-06] MEDS: MULTIVITAMINS THERAPEUTIC TAB PO SCH (09:36)
[2017-07-06] MEDS: CHOLECALCIFEROL 1,000 UNIT TAB PO SCH (09:36)
[2017-07-06] MEDS: BACLOFEN 10 MG TAB PO SCH ×2 (09:36→22:00)
[2017-07-06] MEDS: CYANOCOBALAMIN 100 MCG TAB PO SCH (09:37)
[2017-07-06] MEDS: GABAPENTIN 100 MG CAP PO SCH ×3 (09:37→22:00)
[2017-07-06] MEDS: traMADol 50 MG TAB PO PRN (09:43)
--- NOTE | 2017-07-06 11:31 | CONS ---
Date/Time of Note Date/Time of Note DATE: 07/06/17 TIME: 11:30 Consult Date/Type/Reason Admit Date/Time Jul 03, 2017 at 16:07 Type of Consultation: Internal medicine Subjective Improving with therapy Objective pulm-cta min/mod transfer Vital Signs Date Time Temp Pulse Resp B/P Pulse Ox O2 Delivery O2 Flow Rate FiO2 07/06/17 02:00 98.5 88 18 110/65 97 07/05/17 08:00 Room Air Intake and Output 07/05/17 07/05/17 07/06/17 14:59 22:59 06:59 Intake Total 1200 ml 1350 ml Output Total 720 ml Balance 480 ml 1350 ml Results/Medications Result Diagram: 07/04/17 0655 07/04/17 0654 Medications Current Medications Senna (Senokot) 1 tab HS PO Last administered on 07/04/17 20:46; Admin Dose 1 TAB; Start 07/03/17 at 21:00 Magnesium Hydroxide (Milk Of Mag) 30 ml BID PRN PO CONSTIPATION; Start at 17:00 Lactulose (Enulose) 20 gm DAILY PRN PO CONSTIPATION; Start 07/03/17 at 17:00 Bisacodyl (Dulcolax Supp) 10 mg DAILY PRN [place] CONSTIPATION; Start 07/03/17 at 17 :00 Pantoprazole (Protonix Tab) 40 mg DAILY@06 PO Last administered on 07/06/17 06 :12; Admin Dose 40 MG; Start 07/03/17 at 17:56 Ondansetron HCl (Zofran Tab) 4 mg Q6H PRN PO NAUSEA AND/OR VOMITING; Start 07/03/17 at 17:56 Acetaminophen (Tylenol Tab) 650 mg Q6H PRN PO PAIN LEVEL 1-3 OR FEVER Last administered on 07/06/17 01:07; Admin Dose 650 MG; Start 07/03/17 at 17:56 Docusate Sodium (Colace) 100 mg Q12H PRN PO CONSTIPATION; Start 07/03/17 at 17: 56 Bisacodyl (Dulcolax) 5 mg DAILY PRN PO CONSTIPATION; Start 07/03/17 at 17:56 Cholecalciferol (Vitamin D) 5,000 unit DAILY PO Last administered on 07/06/17 09:36; Admin Dose 5,000 UNIT; Start 07/03/17 at 17:56 Ondansetron HCl (Zofran Inj) 4 mg Q6H PRN IV NAUSEA AND/OR VOMITING; Start 07/03/17 at 17:56 Tramadol HCl (Ultram) 50 mg Q6H PRN PO PAIN Last administered on 07/06/17 09: 43; Admin Dose 50 MG; Start 07/03/17 at 17:56 Tamsulosin HCl (Flomax) 0.4 mg HS PO Last administered on 07/05/17 21:02; Admin Dose 0.4 MG; Start 07/04/17 at 21:00 Baclofen (Lioresal) 10 mg BID PO Last administered on 07/06/17 09:36; Admin Dose 10 MG; Start 07/04/17 at 21:00 Cyanocobalamin (Vitamin B12) 100 mcg DAILY PO Last administered on 07/06/17 09 :37; Admin Dose 100 MCG; Start 07/05/17 at 09:00 Ergocalciferol (Drisdol) 50,000 unit We@09 PO Last administered on 07/05/17 12 :48; Admin Dose 50,000 UNIT; Start 07/05/17 at 09:00; Stop 08/23/17 at 09:01 Multivitamins Therapeutic (Theragran) 1 tab DAILY PO Last administered on 09:36; Admin Dose 1 TAB; Start 07/05/17 at 09:00 Gabapentin (Neurontin) 300 mg TID PO Last administered on 07/06/17 09:37; Admin Dose 300 MG; Start 07/06/17 at 09:00 Acetaminophen/ Hydrocodone Bitart ([place] (5/325)) 1 tab Q4H PRN PO PAIN Last administered on 07/06/17 11:15; Admin Dose 1 TAB; Start 07/05/17 at 22:30 Assessment/Plan Additional Assessment/Plan Rehab- Transverse myelitis with paraplegia. Continue treatment plan. Awaiting orthotics Neuropathic pain Neurogenic bladder- has started to void on flomax SHANELLE PORRAS MD Jul 06, 2017 11:31
--- NOTE | 2017-07-06 13:56 | CONS ---
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 1. LLE numbness, likely peripheral neuropathy with underlying vitamin D deficiency. No evidence of demyelinating disease. Status: Acute -Continue with vitamin D/B12 and multivitamin supplementation. -Start low-dose gabapentin. 2. 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 3. Neurogenic bladder. Status: Chronic -Continue with in and out self-catheterization. 4. Emotional lability/instability, likely secondary to underlying medical condition. -Recommend psychiatry evaluation. DVT prophylaxis: Ambulation Patient was seen in collaboration with . Problems: Consultation Date/Type/Reason Admit Date/Time Jul 03, 2017 at 16:07 Type of Consultation: Internal medicine 24 HR Interval Summary Free Text/Dictation Overall, patient is doing well. Exam/Review of Systems Vital Signs Vitals Vital Signs Date Time Temp Pulse Resp B/P Pulse Ox O2 Delivery O2 Flow Rate FiO2 07/06/17 02:00 98.5 88 18 110/65 97 07/05/17 08:00 Room Air Intake and Output 07/05/17 07/05/17 07/06/17 15:00 23:00 07:00 Intake Total 1200 ml 1350 ml Output Total 720 ml Balance 480 ml 1350 ml Exam General: Well developed,adequately built, not in any acute distress . HEENT: Normocephalic, Atraumatic, No laceration or hematoma; Eyes: PEERL, Conjunctiva clear, Anicteric sclera Neck: Supple without any lymphadenopathy, nontender, no JVD, no carotid bruits, trachea midline, no thyromegaly Cardiac: S1, S2 auscultated, regular rhythm and rate, no mumurs or gallop Pulmonary: Normal respiratory effort. Chest clear to auscultation bilaterally, no adventitious breath sounds GI: Abdomen normal to inspection. Soft, non tender, non- distended, no masses, no rebound tenderness or guarding. Bowel sounds active on all four quadrants Genitourinary: Deferred Extremities: Right lower extremity with flaccid paralysis. Left lower extremity with reported numbness. Full range of motion on all other extremities other than right lower extremity. No cyanosis, clubbing, or edema. Pulses [2+] bilaterally. Neurologic: Alert to person, place, time, and situation. Affect: Labile mood/ highly emotional. Intact sensation. Skin: Clean,dry, and intact. No ecchymosis, no rashes, or lesions Results Result Diagram: 07/04/17 0655 07/04/17 0654 Medications Medications Current Medications Senna (Senokot) 1 tab HS PO Last administered on 07/04/17 20:46; Admin Dose 1 TAB; Start 07/03/17 at 21:00 Magnesium Hydroxide (Milk Of Mag) 30 ml BID PRN PO CONSTIPATION; Start at 17:00 Lactulose (Enulose) 20 gm DAILY PRN PO CONSTIPATION; Start 07/03/17 at 17:00 Bisacodyl (Dulcolax Supp) 10 mg DAILY PRN [place] CONSTIPATION; Start 07/03/17 at 17 :00 Pantoprazole (Protonix Tab) 40 mg DAILY@06 PO Last administered on 07/06/17 06 :12; Admin Dose 40 MG; Start 07/03/17 at 17:56 Ondansetron HCl (Zofran Tab) 4 mg Q6H PRN PO NAUSEA AND/OR VOMITING; Start 07/03/17 at 17:56 Acetaminophen (Tylenol Tab) 650 mg Q6H PRN PO PAIN LEVEL 1-3 OR FEVER Last administered on 07/06/17 01:07; Admin Dose 650 MG; Start 07/03/17 at 17:56 Docusate Sodium (Colace) 100 mg Q12H PRN PO CONSTIPATION; Start 07/03/17 at 17: 56 Bisacodyl (Dulcolax) 5 mg DAILY PRN PO CONSTIPATION; Start 07/03/17 at 17:56 Cholecalciferol (Vitamin D) 5,000 unit DAILY PO Last administered on 07/06/17 09:36; Admin Dose 5,000 UNIT; Start 07/03/17 at 17:56 Ondansetron HCl (Zofran Inj) 4 mg Q6H PRN IV NAUSEA AND/OR VOMITING; Start 07/03/17 at 17:56 Tramadol HCl (Ultram) 50 mg Q6H PRN PO PAIN Last administered on 07/06/17 09: 43; Admin Dose 50 MG; Start 07/03/17 at 17:56 Tamsulosin HCl (Flomax) 0.4 mg HS PO Last administered on 07/05/17 21:02; Admin Dose 0.4 MG; Start 07/04/17 at 21:00 Baclofen (Lioresal) 10 mg BID PO Last administered on 07/06/17 09:36; Admin Dose 10 MG; Start 07/04/17 at 21:00 Cyanocobalamin (Vitamin B12) 100 mcg DAILY PO Last administered on 07/06/17 09 :37; Admin Dose 100 MCG; Start 07/05/17 at 09:00 Ergocalciferol (Drisdol) 50,000 unit We@09 PO Last administered on 07/05/17 12 :48; Admin Dose 50,000 UNIT; Start 07/05/17 at 09:00; Stop 08/23/17 at 09:01 Multivitamins Therapeutic (Theragran) 1 tab DAILY PO Last administered on 09:36; Admin Dose 1 TAB; Start 07/05/17 at 09:00 Gabapentin (Neurontin) 300 mg TID PO Last administered on 07/06/17 12:27; Admin Dose 300 MG; Start 07/06/17 at 09:00 Acetaminophen/ Hydrocodone Bitart ([place] (5/325)) 1 tab Q4H PRN PO PAIN Last administered on 07/06/17 11:15; Admin Dose 1 TAB; Start 07/05/17 at 22:30 LANIE ALEXIS NP Jul 06, 2017 13:56
[2017-07-06] MEDS ORDERED: GABAPENTIN 300 MG CAP PO SCH (14:02)
[2017-07-06 17:37] LABS: ADD UMIC NO; UR ASCORBIC ACID 40 mg/dL (NEGATIVE); UR BACTERIA FEW /HPF (NONE SEEN); UR BILIRUBIN (Dip) NEGATIVE (NEGATIVE); UR BLOOD (Dip) NEGATIVE (NEGATIVE); UR CLARITY SLIGHTLY CLOUDY (CLEAR); UR COLOR YELLOW (YELLOW); UR GLUCOSE (Dip) NEGATIVE (NEGATIVE); UR KETONES (Dip) NEGATIVE (NEGATIVE); UR LEUKOCYTE ESTERASE (Dip) NEGATIVE Leu/ul (NEGATIVE); UR NITRITE (Dip) NEGATIVE (NEGATIVE); UR RBC 1 /HPF (0-5); UR SQUAMOUS EPITHELIAL CELL FEW /HPF (FEW); UR TOTAL PROTEIN (Dip) NEGATIVE (NEGATIVE); UR UROBILINOGEN (Dip) NEGATIVE (NEGATIVE)
[2017-07-06 19:54] VITALS: BP 135/81; RESP 18
[2017-07-06] MEDS: SENNA TAB PO SCH (21:00)
[2017-07-06] MEDS: TAMSULOSIN (SR) 0.4 MG CAP PO SCH (22:00)
[2017-07-07] MEDS: HYDROCODONE/APAP (5/325) TAB PO PRN ×4 (01:20→16:47)
[2017-07-07 02:22] VITALS: BP 98/63; RESP 18
[2017-07-07] MEDS: PANTOPRAZOLE (EC) 40 MG TAB PO SCH (06:31)
[2017-07-07 07:00] VITALS: BP 117/71; RESP 18
[2017-07-07] MEDS: BACLOFEN 10 MG TAB PO SCH ×2 (08:02→20:44)
[2017-07-07] MEDS: CYANOCOBALAMIN 100 MCG TAB PO SCH (08:02)
[2017-07-07] MEDS: CHOLECALCIFEROL 1,000 UNIT TAB PO SCH (08:02)
[2017-07-07] MEDS: MULTIVITAMINS THERAPEUTIC TAB PO SCH (08:02)
[2017-07-07] MEDS: GABAPENTIN 100 MG CAP PO SCH ×3 (08:02→20:44)
--- NOTE | 2017-07-07 12:50 | CONS ---
Date/Time of Note Date/Time of Note DATE: 07/07/17 TIME: 12:49 Consult Date/Type/Reason Admit Date/Time Jul 03, 2017 at 16:07 Type of Consultation: Internal medicine Subjective Now voiding on flomax Objective pulm-cta min assist ambulation Vital Signs Date Time Temp Pulse Resp B/P Pulse Ox O2 Delivery O2 Flow Rate FiO2 07/07/17 07:00 98.4 123 18 117/71 98 07/05/17 08:00 Room Air Intake and Output 07/06/17 07/06/17 07/07/17 14:59 22:59 06:59 Intake Total 800 ml 350 ml Output Total 400 ml Balance 400 ml 350 ml Exam Rehab- Transverse myelitis with paraplegia. Continue treatment plan. Case d/w associate teacher. Neuropathic pain-continue current meds Neurogenic bladder- voiding on flomax Results/Medications Result Diagram: 07/04/17 0655 07/04/17 0654 Results 24 hrs Laboratory Tests Test 07/06/17 16:11 Urine Color YELLOW Urine Clarity SLIGHTLY CLOUDY A Urine pH 5.0 Urine Specific [place] 1.020 Urine Ketones NEGATIVE Urine Nitrite NEGATIVE Urine Bilirubin NEGATIVE Urine Urobilinogen NEGATIVE Urine Leukocyte Esterase NEGATIVE Urine Microscopic RBC 1 Urine Microscopic WBC 1 Urine Squamous Epithelial Cells FEW Urine Bacteria FEW A Urine Hemoglobin NEGATIVE Urine Glucose NEGATIVE Urine Total Protein NEGATIVE Medications Current Medications Senna (Senokot) 1 tab HS PO Last administered on 07/04/17 20:46; Admin Dose 1 TAB; Start 07/03/17 at 21:00 Magnesium Hydroxide (Milk Of Mag) 30 ml BID PRN PO CONSTIPATION; Start at 17:00 Lactulose (Enulose) 20 gm DAILY PRN PO CONSTIPATION; Start 07/03/17 at 17:00 Bisacodyl (Dulcolax Supp) 10 mg DAILY PRN [place] CONSTIPATION; Start 07/03/17 at 17 :00 Pantoprazole (Protonix Tab) 40 mg DAILY@06 PO Last administered on 07/07/17 06 :31; Admin Dose 40 MG; Start 07/03/17 at 17:56 Ondansetron HCl (Zofran Tab) 4 mg Q6H PRN PO NAUSEA AND/OR VOMITING; Start 07/03/17 at 17:56 Acetaminophen (Tylenol Tab) 650 mg Q6H PRN PO PAIN LEVEL 1-3 OR FEVER Last administered on 07/06/17 01:07; Admin Dose 650 MG; Start 07/03/17 at 17:56 Docusate Sodium (Colace) 100 mg Q12H PRN PO CONSTIPATION; Start 07/03/17 at 17: 56 Bisacodyl (Dulcolax) 5 mg DAILY PRN PO CONSTIPATION; Start 07/03/17 at 17:56 Cholecalciferol (Vitamin D) 5,000 unit DAILY PO Last administered on 07/07/17 08:02; Admin Dose 5,000 UNIT; Start 07/03/17 at 17:56 Ondansetron HCl (Zofran Inj) 4 mg Q6H PRN [place] NAUSEA AND/OR VOMITING; Start 07/03/17 at 17:56 Tramadol HCl (Ultram) 50 mg Q6H PRN PO PAIN Last administered on 07/06/17 09: 43; Admin Dose 50 MG; Start 07/03/17 at 17:56 Tamsulosin HCl (Flomax) 0.4 mg HS PO Last administered on 07/06/17 22:00; Admin Dose 0.4 MG; Start 07/04/17 at 21:00 Baclofen (Lioresal) 10 mg BID PO Last administered on 07/07/17 08:02; Admin Dose 10 MG; Start 07/04/17 at 21:00 Cyanocobalamin (Vitamin B12) 100 mcg DAILY PO Last administered on 07/07/17 08 :02; Admin Dose 100 MCG; Start 07/05/17 at 09:00 Ergocalciferol (Drisdol) 50,000 unit [place]@09 PO Last administered on 07/05/17 12 :48; Admin Dose 50,000 UNIT; Start 07/05/17 at 09:00; Stop 08/23/17 at 09:01 Multivitamins Therapeutic (Theragran) 1 tab DAILY PO Last administered on 08:02; Admin Dose 1 TAB; Start 07/05/17 at 09:00 Gabapentin (Neurontin) 300 mg TID PO Last administered on 07/07/17 08:02; Admin Dose 300 MG; Start 07/06/17 at 09:00 Acetaminophen/ Hydrocodone Bitart ([place] (5/325)) 1 tab Q4H PRN PO PAIN Last administered on 12/8/17at 12:39; Admin Dose 1 TAB; Start 07/05/17 at 22:30 SHANELLE PORRAS MD Jul 07, 2017 12:50
[2017-07-07] MEDS: ACETAMINOPHEN 325 MG TAB PO PRN (13:21)
--- NOTE | 2017-07-07 13:35 | CONS ---
Date/Time of Note Date/Time of Note DATE: 07/07/17 TIME: 13:30 Assessment/Plan Assessment/Plan Chief Complaint/Hosp Course This is a 26-year-old female with a past medical history of transverse myelitis with right lower extremity flaccid paralysis, who is transferred to acute rehabilitation unit for comprehensive physical therapy and rehab care. 1. LLE numbness, likely peripheral neuropathy with underlying vitamin D deficiency. No evidence of demyelinating disease. Status: Acute -Continue with vitamin D/B12 and multivitamin supplementation. -Start low-dose gabapentin. 2. 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 3. Neurogenic bladder. Status: Chronic -Continue with in and out self-catheterization. 4. Anxiety/emotional lability/instability, likely secondary to underlying medical condition. -PRN Xanax. Recommend psychiatry evaluation. DVT prophylaxis: Ambulation Patient was seen in collaboration with . Problems: Consultation Date/Type/Reason Admit Date/Time Jul 03, 2017 at 16:07 Type of Consultation: Internal medicine 24 HR Interval Summary Free Text/Dictation NAD Exam/Review of Systems Vital Signs Vitals Vital Signs Date Time Temp Pulse Resp B/P Pulse Ox O2 Delivery O2 Flow Rate FiO2 07/07/17 07:00 98.4 123 18 117/71 98 07/05/17 08:00 Room Air Intake and Output 07/06/17 07/06/17 07/07/17 15:00 23:00 07:00 Intake Total 800 ml 350 ml Output Total 400 ml Balance 400 ml 350 ml Exam General: Well developed,adequately built, not in any acute distress . HEENT: Normocephalic, Atraumatic, No laceration or hematoma; Eyes: PEERL, Conjunctiva clear, Anicteric sclera Neck: Supple without any lymphadenopathy, nontender, no JVD, no carotid bruits, trachea midline, no thyromegaly Cardiac: S1, S2 auscultated, regular rhythm and rate, no mumurs or gallop Pulmonary: Normal respiratory effort. Chest clear to auscultation bilaterally, no adventitious breath sounds GI: Abdomen normal to inspection. Soft, non tender, non- distended, no masses, no rebound tenderness or guarding. Bowel sounds active on all four quadrants Genitourinary: Deferred Extremities: Right lower extremity with flaccid paralysis. Left lower extremity with reported numbness. Full range of motion on all other extremities other than right lower extremity. No cyanosis, clubbing, or edema. Pulses [2+] bilaterally. Neurologic: Alert to person, place, time, and situation. Affect: Labile mood/ highly emotional. Intact sensation. Skin: Clean,dry, and intact. No ecchymosis, no rashes, or lesions Results Result Diagram: 07/04/17 0655 07/04/17 0654 Results 24 hrs Laboratory Tests Test 07/06/17 16:11 Urine Color YELLOW Urine Clarity SLIGHTLY CLOUDY A Urine pH 5.0 Urine Specific [place] 1.020 Urine Ketones NEGATIVE Urine Nitrite NEGATIVE Urine Bilirubin NEGATIVE Urine Urobilinogen NEGATIVE Urine Leukocyte Esterase NEGATIVE Urine Microscopic RBC 1 Urine Microscopic WBC 1 Urine Squamous Epithelial Cells FEW Urine Bacteria FEW A Urine Hemoglobin NEGATIVE Urine Glucose NEGATIVE Urine Total Protein NEGATIVE Medications Medications Current Medications Senna (Senokot) 1 tab HS PO Last administered on 07/04/17 20:46; Admin Dose 1 TAB; Start 07/03/17 at 21:00 Magnesium Hydroxide (Milk Of Mag) 30 ml BID PRN PO CONSTIPATION; Start at 17:00 Lactulose (Enulose) 20 gm DAILY PRN PO CONSTIPATION; Start 07/03/17 at 17:00 Bisacodyl (Dulcolax Supp) 10 mg DAILY PRN [place] CONSTIPATION; Start 07/03/17 at 17 :00 Pantoprazole (Protonix Tab) 40 mg DAILY@06 PO Last administered on 07/07/17 06 :31; Admin Dose 40 MG; Start 07/03/17 at 17:56 Ondansetron HCl (Zofran Tab) 4 mg Q6H PRN PO NAUSEA AND/OR VOMITING; Start 07/03/17 at 17:56 Acetaminophen (Tylenol Tab) 650 mg Q6H PRN PO PAIN LEVEL 1-3 OR FEVER Last administered on 07/07/17 13:21; Admin Dose 650 MG; Start 07/03/17 at 17:56 Docusate Sodium (Colace) 100 mg Q12H PRN PO CONSTIPATION; Start 07/03/17 at 17: 56 Bisacodyl (Dulcolax) 5 mg DAILY PRN PO CONSTIPATION; Start 07/03/17 at 17:56 Cholecalciferol (Vitamin D) 5,000 unit DAILY PO Last administered on 07/07/17 08:02; Admin Dose 5,000 UNIT; Start 07/03/17 at 17:56 Ondansetron HCl (Zofran Inj) 4 mg Q6H PRN IV NAUSEA AND/OR VOMITING; Start 07/03/17 at 17:56 Tramadol HCl (Ultram) 50 mg Q6H PRN PO PAIN Last administered on 07/06/17 09: 43; Admin Dose 50 MG; Start 07/03/17 at 17:56 Tamsulosin HCl (Flomax) 0.4 mg HS PO Last administered on 07/06/17 22:00; Admin Dose 0.4 MG; Start 07/04/17 at 21:00 Baclofen (Lioresal) 10 mg BID PO Last administered on 07/07/17 08:02; Admin Dose 10 MG; Start 07/04/17 at 21:00 Cyanocobalamin (Vitamin B12) 100 mcg DAILY PO Last administered on 07/07/17 08 :02; Admin Dose 100 MCG; Start 07/05/17 at 09:00 Ergocalciferol (Drisdol) 50,000 unit We@09 PO Last administered on 07/05/17 12 :48; Admin Dose 50,000 UNIT; Start 07/05/17 at 09:00; Stop 08/23/17 at 09:01 Multivitamins Therapeutic (Theragran) 1 tab DAILY PO Last administered on 08:02; Admin Dose 1 TAB; Start 07/05/17 at 09:00 Gabapentin (Neurontin) 300 mg TID PO Last administered on 07/07/17 13:21; Admin Dose 300 MG; Start 07/06/17 at 09:00 Acetaminophen/ Hydrocodone Bitart ([place] (5/325)) 1 tab Q4H PRN PO PAIN Last administered on 07/07/17 12:39; Admin Dose 1 TAB; Start 07/05/17 at 22:30 LANIE ALEXIS NP Jul 07, 2017 13:35
[2017-07-07 14:00] VITALS: BP 111/61; RESP 18
[2017-07-07 14:28] LABS: BASOPHILS % 0.4 % (0.0-2.0); EOSINOPHILS % 0.1 % (0.0-7.0); HEMATOCRIT 39.6 % (37.0-47.0); HEMOGLOBIN 13.7 g/dl (12.0-16.0); LYMPHOCYTES # 2.4 10^3/ul (0.8-2.9); LYMPHOCYTES % 25.6 % (15.0-51.0); MEAN CORPUSCULAR HEMOGLOBIN 30.2 pg (29.0-33.0); MEAN CORPUSCULAR HGB CONC 34.6 g/dl (32.0-37.0); MEAN CORPUSCULAR VOLUME 87.4 fl (82.0-101.0); MONOCYTE # 0.8 10^3/ul (0.3-0.9); NEUTROPHIL # 5.9 10^3/ul (1.6-7.5); PLATELET COUNT 327 10^3/UL (140-415); RED BLOOD COUNT 4.53 10^6/ul (4.20-5.40); RED CELL DISTRIBUTION WIDTH 14.6 % (11.5-14.5); WHITE BLOOD COUNT 9.2 10^3/ul (4.8-10.8)
[2017-07-07] MEDS: traMADol 50 MG TAB PO PRN ×2 (14:41→20:49)
[2017-07-07] MEDS: SALINE 0.65% 45 ML NAS SPRAY NASAL PRN (14:42)
[2017-07-07 14:48] LABS: ALBUMIN 4.6 g/dl (3.3-4.9); ALBUMIN/GLOBULIN RATIO 1.39; BILIRUBIN,INDIRECT 0.4 mg/dl (0-1.1); BILIRUBIN,TOTAL 0.4 mg/dl (0.2-1.3); CALCIUM 10.3 mg/dl (8.4-10.2); CREATININE 0.84 mg/dl (0.44-1.00); POTASSIUM 3.9 mmol/L (3.5-5.1); TOTAL PROTEIN 7.9 g/dl (6.1-8.1)
[2017-07-07] MEDS: ALPRAZOLAM 0.5 MG TAB PO PRN (17:51)
[2017-07-07] MEDS ORDERED: BACLOFEN 10 MG TAB PO ONE (18:00)
[2017-07-07 20:00] VITALS: BP 142/67; RESP 18
[2017-07-07] MEDS ORDERED: SUMATRIPTAN 6 MG/0.5 ML INJ SC ONE (20:00)
[2017-07-07] MEDS: SENNA TAB PO SCH (20:44)
[2017-07-07] MEDS: TAMSULOSIN (SR) 0.4 MG CAP PO SCH (20:44)
[2017-07-08] MEDS: HYDROCODONE/APAP (5/325) TAB PO PRN ×5 (01:16→20:52)
[2017-07-08 02:00] VITALS: BP 128/72; RESP 18
[2017-07-08] MEDS: traMADol 50 MG TAB PO PRN ×3 (04:37→20:12)
[2017-07-08] MEDS: PANTOPRAZOLE (EC) 40 MG TAB PO SCH (04:37)
--- NOTE | 2017-07-08 06:57 | CONS ---
Date/Time of Note Date/Time of Note DATE: 07/08/17 TIME: 06:57 Consult Date/Type/Reason Admit Date/Time Jul 03, 2017 at 16:07 Type of Consultation: Internal medicine Subjective patient with headache Objective pulm-cta abd-soft moving B UE, and improved strength on L LE Vital Signs Date Time Temp Pulse Resp B/P Pulse Ox O2 Delivery O2 Flow Rate FiO2 07/08/17 02:00 98.2 75 18 128/72 95 07/05/17 08:00 Room Air Intake and Output 07/07/17 07/07/17 07/08/17 15:00 23:00 07:00 Intake Total 1200 ml Output Total 600 ml Balance 600 ml Results/Medications Result Diagram: 07/07/17 1402 07/07/17 1402 Results 24 hrs Laboratory Tests Test 07/07/17 14:02 White Blood Count 9.2 # Red Blood Count 4.53 Hemoglobin 13.7 Hematocrit 39.6 Mean Corpuscular Volume 87.4 Mean Corpuscular Hemoglobin 30.2 Mean Corpuscular Hemoglobin Concent 34.6 Red Cell Distribution Width 14.6 H Platelet Count 327 # Mean Platelet Volume 11.0 H Neutrophils % 64.0 Lymphocytes % 25.6 Monocytes % 9.0 Eosinophils % 0.1 Basophils % 0.4 Nucleated Red Blood Cells % 0.0 Neutrophils # 5.9 Lymphocytes # 2.4 Monocytes # 0.8 Eosinophils # 0.0 Basophils # 0.0 Nucleated Red Blood Cells # 0.0 Sodium Level 140 Potassium Level 3.9 Chloride Level 100 Carbon Dioxide Level 27 Anion Gap 17 H Blood Urea Nitrogen 19 Creatinine 0.84 Glucose Level 76 Calcium Level 10.3 H Total Bilirubin 0.4 Direct Bilirubin 0.00 Indirect Bilirubin 0.4 Aspartate Amino Transf (AST/SGOT) 58 H Alanine Aminotransferase (ALT/SGPT) 166 H Alkaline Phosphatase 79 Total Protein 7.9 Albumin 4.6 Globulin 3.30 H Albumin/Globulin Ratio 1.39 Medications Current Medications Senna (Senokot) 1 tab HS PO Last administered on 07/07/17t 20:44; Admin Dose 1 TAB; Start 07/03/17 at 21:00 Magnesium Hydroxide (Milk Of Mag) 30 ml BID PRN PO CONSTIPATION; Start at 17:00 Lactulose (Enulose) 20 gm DAILY PRN PO CONSTIPATION; Start 07/03/17 at 17:00 Bisacodyl (Dulcolax Supp) 10 mg DAILY PRN [place] CONSTIPATION; Start 07/03/17 at 17 :00 Pantoprazole (Protonix Tab) 40 mg DAILY@06 PO Last administered on 07/08/17 04 :37; Admin Dose 40 MG; Start 07/03/17 at 17:56 Ondansetron HCl (Zofran Tab) 4 mg Q6H PRN PO NAUSEA AND/OR VOMITING; Start 07/03/17 at 17:56 Acetaminophen (Tylenol Tab) 650 mg Q6H PRN PO PAIN LEVEL 1-3 OR FEVER Last administered on 07/07/17 13:21; Admin Dose 650 MG; Start 07/03/17 at 17:56 Docusate Sodium (Colace) 100 mg Q12H PRN PO CONSTIPATION; Start 07/03/17 at 17: 56 Bisacodyl (Dulcolax) 5 mg DAILY PRN PO CONSTIPATION; Start 07/03/17 at 17:56 Cholecalciferol (Vitamin D) 5,000 unit DAILY PO Last administered on 07/07/17 08:02; Admin Dose 5,000 UNIT; Start 07/03/17 at 17:56 Ondansetron HCl (Zofran Inj) 4 mg Q6H PRN IV NAUSEA AND/OR VOMITING; Start 07/03/17 at 17:56 Tramadol HCl (Ultram) 50 mg Q6H PRN PO PAIN Last administered on 07/08/17 04: 37; Admin Dose 50 MG; Start 07/03/17 at 17:56 Tamsulosin HCl (Flomax) 0.4 mg HS PO Last administered on 07/07/17 20:44; Admin Dose 0.4 MG; Start 07/04/17 at 21:00 Baclofen (Lioresal) 10 mg BID PO Last administered on 07/07/17 20:44; Admin Dose 10 MG; Start 07/04/17 at 21:00 Cyanocobalamin (Vitamin B12) 100 mcg DAILY PO Last administered on 07/07/17 08 :02; Admin Dose 100 MCG; Start 07/05/17 at 09:00 Ergocalciferol (Drisdol) 50,000 unit We@09 PO Last administered on 07/05/17 12 :48; Admin Dose 50,000 UNIT; Start 07/05/17 at 09:00; Stop 08/23/17 at 09:01 Multivitamins Therapeutic (Theragran) 1 tab DAILY PO Last administered on 08:02; Admin Dose 1 TAB; Start 07/05/17 at 09:00 Gabapentin (Neurontin) 300 mg TID PO Last administered on 07/07/17 20:44; Admin Dose 300 MG; Start 07/06/17 at 09:00 Acetaminophen/ Hydrocodone Bitart ([place] (5/325)) 1 tab Q4H PRN PO PAIN Last administered on 07/08/17 05:38; Admin Dose 1 TAB; Start 07/05/17 at 22:30 Alprazolam (Xanax) 0.5 mg Q12H PRN PO ANXIETY Last administered on 07/07/17 17 :51; Admin Dose 0.5 MG; Start 07/07/17 at 14:00 Sodium Chloride ([place]) 1 spray Q6H PRN NASAL IRRITATION/DRYNESS Last administered on 07/07/17 14:42; Admin Dose 1 SPRAY; Start 07/07/17 at 14:00 Assessment/Plan Additional Assessment/Plan Rehab- Transverse myelitis with paraplegia. Continue rehab program Neuropathic pain-continue current meds Neurogenic bladder- voiding on flomax SHANELLE PORRAS MD Jul 08, 2017 06:57
[2017-07-08 07:30] VITALS: BP 122/70; RESP 18
[2017-07-08] MEDS: MULTIVITAMINS THERAPEUTIC TAB PO SCH (09:23)
[2017-07-08] MEDS: CHOLECALCIFEROL 1,000 UNIT TAB PO SCH (09:23)
[2017-07-08] MEDS: BACLOFEN 10 MG TAB PO SCH ×2 (09:24→20:11)
[2017-07-08] MEDS: GABAPENTIN 100 MG CAP PO SCH ×3 (09:24→20:11)
[2017-07-08] MEDS: CYANOCOBALAMIN 100 MCG TAB PO SCH (09:24)
[2017-07-08 14:00] VITALS: BP 126/66; RESP 20
--- NOTE | 2017-07-08 14:00 | CONS ---
Date/Time of Note Date/Time of Note DATE: 07/08/17 TIME: 13:59 Assessment/Plan Assessment/Plan Chief Complaint/Hosp Course This is a 26-year-old female with a past medical history of transverse myelitis with right lower extremity flaccid paralysis, who is transferred to acute rehabilitation unit for comprehensive physical therapy and rehab care. 1. LLE numbness, likely peripheral neuropathy with underlying vitamin D deficiency. No evidence of demyelinating disease. Status: Acute -Continue with vitamin D/B12 and multivitamin supplementation. -Start low-dose gabapentin. 2. 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 3. Neurogenic bladder. Status: Chronic -Continue with in and out self-catheterization. 4. Anxiety/emotional lability/instability, likely secondary to underlying medical condition. -PRN Xanax. Recommend psychiatry evaluation. DVT prophylaxis: Ambulation Patient was seen in collaboration with . Problems: Consultation Date/Type/Reason Admit Date/Time Jul 03, 2017 at 16:07 Type of Consultation: Internal medicine 24 HR Interval Summary Free Text/Dictation NAD Exam/Review of Systems Vital Signs Vitals Vital Signs Date Time Temp Pulse Resp B/P Pulse Ox O2 Delivery O2 Flow Rate FiO2 07/08/17 07:30 98.3 18 122/70 96 07/08/17 02:00 75 07/05/17 08:00 Room Air Intake and Output 07/07/17 07/07/17 07/08/17 15:00 23:00 07:00 Intake Total 1200 ml Output Total 600 ml Balance 600 ml Exam General: Well developed,adequately built, not in any acute distress . HEENT: Normocephalic, Atraumatic, No laceration or hematoma; Eyes: PEERL, Conjunctiva clear, Anicteric sclera Neck: Supple without any lymphadenopathy, nontender, no JVD, no carotid bruits, trachea midline, no thyromegaly Cardiac: S1, S2 auscultated, regular rhythm and rate, no mumurs or gallop Pulmonary: Normal respiratory effort. Chest clear to auscultation bilaterally, no adventitious breath sounds GI: Abdomen normal to inspection. Soft, non tender, non- distended, no masses, no rebound tenderness or guarding. Bowel sounds active on all four quadrants Genitourinary: Incontinent-in&out cath Extremities: Right lower extremity with flaccid paralysis. Left lower extremity with reported numbness. Full range of motion on all other extremities other than right lower extremity. No cyanosis, clubbing, or edema. Pulses [2+] bilaterally. Neurologic: Alert to person, place, time, and situation. Affect: Labile mood/ highly emotional. Intact sensation. Skin: Clean,dry, and intact. No ecchymosis, no rashes, or lesions Results Result Diagram: 07/07/17 1402 07/07/17 1402 Results 24 hrs Laboratory Tests Test 07/07/17 14:02 White Blood Count 9.2 # Red Blood Count 4.53 Hemoglobin 13.7 Hematocrit 39.6 Mean Corpuscular Volume 87.4 Mean Corpuscular Hemoglobin 30.2 Mean Corpuscular Hemoglobin Concent 34.6 Red Cell Distribution Width 14.6 H Platelet Count 327 # Mean Platelet Volume 11.0 H Neutrophils % 64.0 Lymphocytes % 25.6 Monocytes % 9.0 Eosinophils % 0.1 Basophils % 0.4 Nucleated Red Blood Cells % 0.0 Neutrophils # 5.9 Lymphocytes # 2.4 Monocytes # 0.8 Eosinophils # 0.0 Basophils # 0.0 Nucleated Red Blood Cells # 0.0 Sodium Level 140 Potassium Level 3.9 Chloride Level 100 Carbon Dioxide Level 27 Anion Gap 17 H Blood Urea Nitrogen 19 Creatinine 0.84 Glucose Level 76 Calcium Level 10.3 H Total Bilirubin 0.4 Direct Bilirubin 0.00 Indirect Bilirubin 0.4 Aspartate Amino Transf (AST/SGOT) 58 H Alanine Aminotransferase (ALT/SGPT) 166 H Alkaline Phosphatase 79 Total Protein 7.9 Albumin 4.6 Globulin 3.30 H Albumin/Globulin Ratio 1.39 Medications Medications Current Medications Senna (Senokot) 1 tab HS PO Last administered on 07/07/17 20:44; Admin Dose 1 TAB; Start 07/03/17 at 21:00 Magnesium Hydroxide (Milk Of Mag) 30 ml BID PRN PO CONSTIPATION; Start at 17:00 Lactulose (Enulose) 20 gm DAILY PRN PO CONSTIPATION; Start 07/03/17 at 17:00 Bisacodyl (Dulcolax Supp) 10 mg DAILY PRN [place] CONSTIPATION; Start 07/03/17 at 17 :00 Pantoprazole (Protonix Tab) 40 mg DAILY@06 PO Last administered on 07/08/17 04 :37; Admin Dose 40 MG; Start 07/03/17 at 17:56 Ondansetron HCl (Zofran Tab) 4 mg Q6H PRN PO NAUSEA AND/OR VOMITING; Start 07/03/17 at 17:56 Acetaminophen (Tylenol Tab) 650 mg Q6H PRN PO PAIN LEVEL 1-3 OR FEVER Last administered on 07/07/17 13:21; Admin Dose 650 MG; Start 07/03/17 at 17:56 Docusate Sodium (Colace) 100 mg Q12H PRN PO CONSTIPATION; Start 07/03/17 at 17: 56 Bisacodyl (Dulcolax) 5 mg DAILY PRN PO CONSTIPATION; Start 07/03/17 at 17:56 Cholecalciferol (Vitamin D) 5,000 unit DAILY PO Last administered on 07/08/17 09:23; Admin Dose 5,000 UNIT; Start 07/03/17 at 17:56 Ondansetron HCl (Zofran Inj) 4 mg Q6H PRN IV NAUSEA AND/OR VOMITING; Start 07/03/17 at 17:56 Tramadol HCl (Ultram) 50 mg Q6H PRN PO PAIN Last administered on 07/08/17 12: 17; Admin Dose 50 MG; Start 07/03/17 at 17:56 Tamsulosin HCl (Flomax) 0.4 mg HS PO Last administered on 07/07/17 20:44; Admin Dose 0.4 MG; Start 07/04/17 at 21:00 Baclofen (Lioresal) 10 mg BID PO Last administered on 07/08/17 09:24; Admin Dose 10 MG; Start 07/04/17 at 21:00 Cyanocobalamin (Vitamin B12) 100 mcg DAILY PO Last administered on 07/08/17 09 :24; Admin Dose 100 MCG; Start 07/05/17 at 09:00 Ergocalciferol (Drisdol) 50,000 unit We@09 PO Last administered on 07/05/17 12 :48; Admin Dose 50,000 UNIT; Start 07/05/17 at 09:00; Stop 08/23/17 at 09:01 Multivitamins Therapeutic (Theragran) 1 tab DAILY PO Last administered on 09:23; Admin Dose 1 TAB; Start 07/05/17 at 09:00 Acetaminophen/ Hydrocodone Bitart ([place] (5/325)) 1 tab Q4H PRN PO PAIN Last administered on 07/08/17 10:14; Admin Dose 1 TAB; Start 07/05/17 at 22:30 Alprazolam (Xanax) 0.5 mg Q12H PRN PO ANXIETY Last administered on 07/07/17 17 :51; Admin Dose 0.5 MG; Start 07/07/17 at 14:00 Sodium Chloride ([place]) 1 spray Q6H PRN NASAL IRRITATION/DRYNESS Last administered on 07/07/17 14:42; Admin Dose 1 SPRAY; Start 07/07/17 at 14:00 Gabapentin (Neurontin) 200 mg TID PO Last administered on 07/08/17 12:16; Admin Dose 200 MG; Start 07/08/17 at 09:00 LANIE ALEXIS NP Jul 08, 2017 14:00
[2017-07-08 20:00] VITALS: BP 124/61; RESP 18
[2017-07-08] MEDS: TAMSULOSIN (SR) 0.4 MG CAP PO SCH (20:11)
[2017-07-08] MEDS: SENNA TAB PO SCH (20:15)
[2017-07-08] MEDS: ALPRAZOLAM 0.5 MG TAB PO PRN (22:02)
[2017-07-09] MEDS: HYDROCODONE/APAP (5/325) TAB PO PRN ×3 (02:11→18:52)
[2017-07-09 02:59] VITALS: BP 125/67; RESP 18
[2017-07-09] MEDS: PANTOPRAZOLE (EC) 40 MG TAB PO SCH (05:52)
[2017-07-09] MEDS: traMADol 50 MG TAB PO PRN ×3 (05:53→20:49)
[2017-07-09 07:00] VITALS: BP 118/63; RESP 18
[2017-07-09] MEDS: CHOLECALCIFEROL 1,000 UNIT TAB PO SCH (08:42)
[2017-07-09] MEDS: CYANOCOBALAMIN 100 MCG TAB PO SCH (08:43)
[2017-07-09] MEDS: BACLOFEN 10 MG TAB PO SCH ×2 (08:43→20:43)
[2017-07-09] MEDS: MULTIVITAMINS THERAPEUTIC TAB PO SCH (08:43)
[2017-07-09] MEDS: GABAPENTIN 100 MG CAP PO SCH ×3 (08:44→20:44)
[2017-07-09] MEDS: SALINE 0.65% 45 ML NAS SPRAY NASAL PRN (10:28)
--- NOTE | 2017-07-09 10:54 | CONS ---
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 1. LLE numbness, likely peripheral neuropathy with underlying vitamin D deficiency. No evidence of demyelinating disease. Improving. Status: Acute -Continue with vitamin D/B12 and multivitamin supplementation. -Continue gabapentin as it seems responding. We will also obtain a baseline liver function test for tomorrow. 2. 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 3. Neurogenic bladder. Status: Chronic -Patient on Flomax. She is with more control on bladder function now. Continue with in and out self-catheterization PRN. 4. Anxiety/emotional lability/instability, likely secondary to underlying medical condition. Stable. -PRN Xanax. Recommend psychiatry evaluation. DVT prophylaxis: Ambulation Patient was seen in collaboration with . Problems: Consultation Date/Type/Reason Admit Date/Time Jul 03, 2017 at 16:07 Type of Consultation: Internal medicine 24 HR Interval Summary Free Text/Dictation Today patient is doing well. She is having more control on bladder function. She also reported to me that her left leg numbness has improved significantly. Right leg remains flaccid. Exam/Review of Systems Vital Signs Vitals Vital Signs Date Time Temp Pulse Resp B/P Pulse Ox O2 Delivery O2 Flow Rate FiO2 07/09/17 07:00 98.6 91 18 118/63 100 07/05/17 08:00 Room Air Intake and Output 07/08/17 07/08/17 07/09/17 15:00 23:00 07:00 Intake Total 750 ml 640 ml 1300 ml Output Total 500 ml Balance 750 ml 640 ml 800 ml Exam General: Well developed,adequately built, not in any acute distress . HEENT: Normocephalic, Atraumatic, No laceration or hematoma; Eyes: PEERL, Conjunctiva clear, Anicteric sclera Neck: Supple without any lymphadenopathy, nontender, no JVD, no carotid bruits, trachea midline, no thyromegaly Cardiac: S1, S2 auscultated, regular rhythm and rate, no mumurs or gallop Pulmonary: Normal respiratory effort. Chest clear to auscultation bilaterally, no adventitious breath sounds GI: Abdomen normal to inspection. Soft, non tender, non- distended, no masses, no rebound tenderness or guarding. Bowel sounds active on all four quadrants Genitourinary: Incontinent-in&out cath Extremities: Right lower extremity with flaccid paralysis. Left lower extremity with reported numbness-improved. Full range of motion on all other extremities other than right lower extremity. No cyanosis, clubbing, or edema. Pulses [2+] bilaterally. Neurologic: Alert to person, place, time, and situation. Affect: Labile mood/ highly emotional. Intact sensation. Skin: Clean,dry, and intact. No ecchymosis, no rashes, or lesions Results Result Diagram: 07/07/17 1402 07/07/17 1402 Medications Medications Current Medications Senna (Senokot) 1 tab HS PO Last administered on 07/07/17 20:44; Admin Dose 1 TAB; Start 07/03/17 at 21:00 Magnesium Hydroxide (Milk Of Mag) 30 ml BID PRN PO CONSTIPATION; Start at 17:00 Lactulose (Enulose) 20 gm DAILY PRN PO CONSTIPATION; Start 07/03/17 at 17:00 Bisacodyl (Dulcolax Supp) 10 mg DAILY PRN [place] CONSTIPATION; Start 07/03/17 at 17 :00 Pantoprazole (Protonix Tab) 40 mg DAILY@06 PO Last administered on 07/09/17 05:52; Admin Dose 40 MG; Start 07/03/17 at 17:56 Ondansetron HCl (Zofran Tab) 4 mg Q6H PRN PO NAUSEA AND/OR VOMITING; Start 07/03/17 at 17:56 Acetaminophen (Tylenol Tab) 650 mg Q6H PRN PO PAIN LEVEL 1-3 OR FEVER Last administered on 07/07/17 13:21; Admin Dose 650 MG; Start 07/03/17 at 17:56 Docusate Sodium (Colace) 100 mg Q12H PRN PO CONSTIPATION; Start 07/03/17 at 17: 56 Bisacodyl (Dulcolax) 5 mg DAILY PRN PO CONSTIPATION; Start 07/03/17 at 17:56 Cholecalciferol (Vitamin D) 5,000 unit DAILY PO Last administered on 08:42; Admin Dose 5,000 UNIT; Start 07/03/17 at 17:56 Ondansetron HCl (Zofran Inj) 4 mg Q6H PRN IV NAUSEA AND/OR VOMITING; Start 07/03/17 at 17:56 Tramadol HCl (Ultram) 50 mg Q6H PRN PO PAIN Last administered on 07/09/17 05: 53; Admin Dose 50 MG; Start 07/03/17 at 17:56 Tamsulosin HCl (Flomax) 0.4 mg HS PO Last administered on 07/08/17 20:11; Admin Dose 0.4 MG; Start 07/04/17 at 21:00 Baclofen (Lioresal) 10 mg BID PO Last administered on 07/09/17 08:43; Admin Dose 10 MG; Start 07/04/17 at 21:00 Cyanocobalamin (Vitamin B12) 100 mcg DAILY PO Last administered on 07/09/17 08:43; Admin Dose 100 MCG; Start 07/05/17 at 09:00 Ergocalciferol (Drisdol) 50,000 unit We@09 PO Last administered on 07/05/17 12 :48; Admin Dose 50,000 UNIT; Start 07/05/17 at 09:00; Stop 08/23/17 at 09:01 Multivitamins Therapeutic (Theragran) 1 tab DAILY PO Last administered on 07/09 08:43; Admin Dose 1 TAB; Start 07/05/17 at 09:00 Acetaminophen/ Hydrocodone Bitart ([place] (5/325)) 1 tab Q4H PRN PO PAIN Last administered on 07/09/17 08:42; Admin Dose 1 TAB; Start 07/05/17 at 22:30 Alprazolam (Xanax) 0.5 mg Q12H PRN PO ANXIETY Last administered on 07/08/17 22 :02; Admin Dose 0.5 MG; Start 07/07/17 at 14:00 Sodium Chloride (Deep Sea) 1 spray Q6H PRN NASAL IRRITATION/DRYNESS Last administered on 07/09/17 10:28; Admin Dose 1 SPRAY; Start 07/07/17 at 14:00 Gabapentin (Neurontin) 200 mg TID PO Last administered on 07/09/17 08:44; Admin Dose 200 MG; Start 07/08/17 at 09:00 LANIE ALEXIS NP Jul 09, 2017 10:54
[2017-07-09 14:00] VITALS: BP 149/70; RESP 18
[2017-07-09 20:00] VITALS: BP 119/73; RESP 18
[2017-07-09] MEDS: TAMSULOSIN (SR) 0.4 MG CAP PO SCH (20:43)
[2017-07-09] MEDS: SENNA TAB PO SCH (21:00)
[2017-07-09] MEDS: ALPRAZOLAM 0.5 MG TAB PO PRN (22:14)
[2017-07-10] MEDS: HYDROCODONE/APAP (5/325) TAB PO PRN ×4 (00:24→18:27)
[2017-07-10] MEDS: SALINE 0.65% 45 ML NAS SPRAY NASAL PRN (00:30)
[2017-07-10 02:00] VITALS: BP 126/69; RESP 18
[2017-07-10] MEDS: traMADol 50 MG TAB PO PRN ×2 (03:29→11:12)
[2017-07-10] MEDS: PANTOPRAZOLE (EC) 40 MG TAB PO SCH (05:54)
[2017-07-10 07:00] VITALS: BP 140/96; RESP 18
[2017-07-10 07:28] LABS: ALBUMIN 3.7 g/dl (3.3-4.9); BILIRUBIN,INDIRECT 0.6 mg/dl (0-1.1); BILIRUBIN,TOTAL 0.6 mg/dl (0.2-1.3); TOTAL PROTEIN 6.5 g/dl (6.1-8.1)
[2017-07-10] MEDS: BACLOFEN 10 MG TAB PO SCH ×2 (08:17→21:59)
[2017-07-10] MEDS: GABAPENTIN 100 MG CAP PO SCH ×3 (08:17→21:59)
[2017-07-10] MEDS: CYANOCOBALAMIN 100 MCG TAB PO SCH (08:17)
[2017-07-10] MEDS: MULTIVITAMINS THERAPEUTIC TAB PO SCH (08:17)
[2017-07-10] MEDS: CHOLECALCIFEROL 1,000 UNIT TAB PO SCH (08:18)
[2017-07-10 10:30] VITALS: BP 131/83; PULSE 89
--- NOTE | 2017-07-10 11:07 | CONS ---
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 1. LLE numbness, likely peripheral neuropathy with underlying vitamin D deficiency. No evidence of demyelinating disease. Improving. Status: Acute -Continue with vitamin D/B12 and multivitamin supplementation. -Continue gabapentin as it seems responding. We will also obtain a baseline liver function test for tomorrow. 2. 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 3. Neurogenic bladder. Status: Chronic -On Flomax. Continue with in and out self-catheterization PRN. 4. Anxiety/emotional lability/instability, likely secondary to underlying medical condition. Stable. -PRN Xanax. Recommend psychiatry evaluation. DVT prophylaxis: Ambulation Patient was seen in collaboration with . Problems: Consultation Date/Type/Reason Admit Date/Time Jul 03, 2017 at 16:07 Type of Consultation: Internal medicine 24 HR Interval Summary Free Text/Dictation No acute distress. Exam/Review of Systems Vital Signs Vitals Vital Signs Date Time Temp Pulse Resp B/P Pulse Ox O2 Delivery O2 Flow Rate FiO2 07/10/17 07:00 98.3 93 18 140/96 94 Intake and Output 07/09/17 07/09/17 07/10/17 15:00 23:00 07:00 Intake Total 120 ml 1600 ml 120 ml Output Total 350 ml 1200 ml 1050 ml Balance -230 ml 400 ml -930 ml Exam General: Well developed,adequately built, not in any acute distress . HEENT: Normocephalic, Atraumatic, No laceration or hematoma; Eyes: PEERL, Conjunctiva clear, Anicteric sclera Neck: Supple without any lymphadenopathy, nontender, no JVD, no carotid bruits, trachea midline, no thyromegaly Cardiac: S1, S2 auscultated, regular rhythm and rate, no mumurs or gallop Pulmonary: Normal respiratory effort. Chest clear to auscultation bilaterally, no adventitious breath sounds GI: Abdomen normal to inspection. Soft, non tender, non- distended, no masses, no rebound tenderness or guarding. Bowel sounds active on all four quadrants Genitourinary: Incontinent-in&out cath Extremities: Right lower extremity with flaccid paralysis. Left lower extremity with reported numbness-improved. Full range of motion on all other extremities other than right lower extremity. No cyanosis, clubbing, or edema. Pulses [2+] bilaterally. Neurologic: Alert to person, place, time, and situation. Affect: Labile mood/ highly emotional. Intact sensation. Skin: Clean,dry, and intact. No ecchymosis, no rashes, or lesions Results Result Diagram: 07/07/17 1402 07/07/17 1402 Results 24 hrs Laboratory Tests Test 07/10/17 06:12 Total Bilirubin 0.6 Direct Bilirubin 0.00 Indirect Bilirubin 0.6 Aspartate Amino Transf (AST/SGOT) 81 H Alanine Aminotransferase (ALT/SGPT) 173 H Alkaline Phosphatase 60 Total Protein 6.5 Albumin 3.7 Medications Medications Current Medications Senna (Senokot) 1 tab HS PO Last administered on 07/07/17 20:44; Admin Dose 1 TAB; Start 07/03/17 at 21:00 Magnesium Hydroxide (Milk Of Mag) 30 ml BID PRN PO CONSTIPATION; Start at 17:00 Lactulose (Enulose) 20 gm DAILY PRN PO CONSTIPATION; Start 07/03/17 at 17:00 Bisacodyl (Dulcolax Supp) 10 mg DAILY PRN [place] CONSTIPATION; Start 07/03/17 at 17 :00 Pantoprazole (Protonix Tab) 40 mg DAILY@06 PO Last administered on 07/10/17 05:54; Admin Dose 40 MG; Start 07/03/17 at 17:56 Ondansetron HCl (Zofran Tab) 4 mg Q6H PRN PO NAUSEA AND/OR VOMITING; Start 07/03/17 at 17:56 Acetaminophen (Tylenol Tab) 650 mg Q6H PRN PO PAIN LEVEL 1-3 OR FEVER Last administered on 07/07/17 13:21; Admin Dose 650 MG; Start 07/03/17 at 17:56 Docusate Sodium (Colace) 100 mg Q12H PRN PO CONSTIPATION; Start 07/03/17 at 17: 56 Bisacodyl (Dulcolax) 5 mg DAILY PRN PO CONSTIPATION; Start 07/03/17 at 17:56 Cholecalciferol (Vitamin D) 5,000 unit DAILY PO Last administered on 08:18; Admin Dose 5,000 UNIT; Start 07/03/17 at 17:56 Ondansetron HCl (Zofran Inj) 4 mg Q6H PRN IV NAUSEA AND/OR VOMITING; Start 07/03/17 at 17:56 Tramadol HCl (Ultram) 50 mg Q6H PRN PO PAIN Last administered on 07/10/17 03: 29; Admin Dose 50 MG; Start 07/03/17 at 17:56 Tamsulosin HCl (Flomax) 0.4 mg HS PO Last administered on 07/09/17 20:43; Admin Dose 0.4 MG; Start 07/04/17 at 21:00 Baclofen (Lioresal) 10 mg BID PO Last administered on 07/10/17 08:17; Admin Dose 10 MG; Start 07/04/17 at 21:00 Cyanocobalamin (Vitamin B12) 100 mcg DAILY PO Last administered on 07/10/17 08:17; Admin Dose 100 MCG; Start 07/05/17 at 09:00 Ergocalciferol (Drisdol) 50,000 unit We@09 PO Last administered on 07/05/17 12 :48; Admin Dose 50,000 UNIT; Start 07/05/17 at 09:00; Stop 08/23/17 at 09:01 Multivitamins Therapeutic (Theragran) 1 tab DAILY PO Last administered on 07/10 08:17; Admin Dose 1 TAB; Start 07/05/17 at 09:00 Acetaminophen/ Hydrocodone Bitart ([place] (5/325)) 1 tab Q4H PRN PO PAIN Last administered on 07/10/17 08:17; Admin Dose 1 TAB; Start 07/05/17 at 22:30 Alprazolam (Xanax) 0.5 mg Q12H PRN PO ANXIETY Last administered on 07/09/17 22:14; Admin Dose 0.5 MG; Start 07/07/17 at 14:00 Sodium Chloride (Deep Sea) 1 spray Q6H PRN NASAL IRRITATION/DRYNESS Last administered on 07/10/17 00:30; Admin Dose 1 SPRAY; Start 12/8/17 at 14:00 Gabapentin (Neurontin) 200 mg TID PO Last administered on 07/10/17t 08:17; Admin Dose 200 MG; Start 07/08/17 at 09:00 LANIE ALEXIS NP Jul 10, 2017 11:07
--- NOTE | 2017-07-10 11:47 | CONS ---
Date/Time of Note Date/Time of Note DATE: 07/10/17 TIME: 11:47 Consult Date/Type/Reason Admit Date/Time Jul 03, 2017 at 16:07 Type of Consultation: Internal medicine Subjective Patient reports she has been spontaneously voiding, with little to no retention. She reports she was attempting to get OOB on her own to commode, and fell forward landing on her knees. She denies focal pain, or head trauma. Objective Vital Signs Date Time Temp Pulse Resp B/P Pulse Ox O2 Delivery O2 Flow Rate FiO2 07/10/17 07:00 98.3 93 18 140/96 94 Intake and Output 07/09/17 07/09/17 07/10/17 14:59 22:59 06:59 Intake Total 120 ml 1600 ml 120 ml Output Total 350 ml 1200 ml 1050 ml Balance -230 ml 400 ml -930 ml INTERDISCIPLINARY TEAM CONFERENCE BOWEL- Cont BLADDER-Cont SKIN- intact OT- DRESSING-min/sba BATHING-min/sba TOILETING-min/sba PT- BED MOBILITY-sba TRANSFERS-sba AMBULATION-sba 150 feet A/P- Interdisciplinary team conference held today. Please see interdisciplinary sheet. Working toward d.c. on 07/14 with post discharge follow up of physical therapy, occupational therapy. Results/Medications Result Diagram: 07/07/17 1402 07/07/17 1402 Results 24 hrs Laboratory Tests Test 07/10/17 06:12 Total Bilirubin 0.6 Direct Bilirubin 0.00 Indirect Bilirubin 0.6 Aspartate Amino Transf (AST/SGOT) 81 H Alanine Aminotransferase (ALT/SGPT) 173 H Alkaline Phosphatase 60 Total Protein 6.5 Albumin 3.7 Medications Current Medications Senna (Senokot) 1 tab HS PO Last administered on 07/07/17 20:44; Admin Dose 1 TAB; Start 07/03/17 at 21:00 Magnesium Hydroxide (Milk Of Mag) 30 ml BID PRN PO CONSTIPATION; Start at 17:00 Lactulose (Enulose) 20 gm DAILY PRN PO CONSTIPATION; Start 07/03/17 at 17:00 Bisacodyl (Dulcolax Supp) 10 mg DAILY PRN [place] CONSTIPATION; Start 07/03/17 at 17 :00 Pantoprazole (Protonix Tab) 40 mg DAILY@06 PO Last administered on 07/10/17 05:54; Admin Dose 40 MG; Start 07/03/17 at 17:56 Ondansetron HCl (Zofran Tab) 4 mg Q6H PRN PO NAUSEA AND/OR VOMITING; Start 07/03/17 at 17:56 Acetaminophen (Tylenol Tab) 650 mg Q6H PRN PO PAIN LEVEL 1-3 OR FEVER Last administered on 07/07/17 13:21; Admin Dose 650 MG; Start 07/03/17 at 17:56 Docusate Sodium (Colace) 100 mg Q12H PRN PO CONSTIPATION; Start 07/03/17 at 17: 56 Bisacodyl (Dulcolax) 5 mg DAILY PRN PO CONSTIPATION; Start 07/03/17 at 17:56 Cholecalciferol (Vitamin D) 5,000 unit DAILY PO Last administered on 08:18; Admin Dose 5,000 UNIT; Start 07/03/17 at 17:56 Ondansetron HCl (Zofran Inj) 4 mg Q6H PRN IV NAUSEA AND/OR VOMITING; Start 07/03/17 at 17:56 Tramadol HCl (Ultram) 50 mg Q6H PRN PO PAIN Last administered on 07/10/17 11: 12; Admin Dose 50 MG; Start 07/03/17 at 17:56 Tamsulosin HCl (Flomax) 0.4 mg HS PO Last administered on 07/09/17 20:43; Admin Dose 0.4 MG; Start 07/04/17 at 21:00 Baclofen (Lioresal) 10 mg BID PO Last administered on 07/10/17 08:17; Admin Dose 10 MG; Start 07/04/17 at 21:00 Cyanocobalamin (Vitamin B12) 100 mcg DAILY PO Last administered on 07/10/17 08:17; Admin Dose 100 MCG; Start 07/05/17 at 09:00 Ergocalciferol (Drisdol) 50,000 unit We@09 PO Last administered on 07/05/17 12 :48; Admin Dose 50,000 UNIT; Start 07/05/17 at 09:00; Stop 08/23/17 at 09:01 Multivitamins Therapeutic (Theragran) 1 tab DAILY PO Last administered on 07/10 08:17; Admin Dose 1 TAB; Start 07/05/17 at 09:00 Acetaminophen/ Hydrocodone Bitart ([place] (5/325)) 1 tab Q4H PRN PO PAIN Last administered on 07/10/17 08:17; Admin Dose 1 TAB; Start 07/05/17 at 22:30 Alprazolam (Xanax) 0.5 mg Q12H PRN PO ANXIETY Last administered on 07/09/17 22:14; Admin Dose 0.5 MG; Start 07/07/17 at 14:00 Sodium Chloride (Deep Sea) 1 spray Q6H PRN NASAL IRRITATION/DRYNESS Last administered on 07/10/17 00:30; Admin Dose 1 SPRAY; Start 07/07/17 at 14:00 Gabapentin (Neurontin) 200 mg TID PO Last administered on 07/10/17 08:17; Admin Dose 200 MG; Start 07/08/17 at 09:00 SHANELLE PORRAS MD Jul 10, 2017 11:47
[2017-07-10] MEDS: ACETAMINOPHEN 325 MG TAB PO PRN (16:13)
[2017-07-10 20:00] VITALS: BP 106/56; RESP 18
[2017-07-10] MEDS: SENNA TAB PO SCH (21:00)
[2017-07-10] MEDS: TAMSULOSIN (SR) 0.4 MG CAP PO SCH (21:59)
[2017-07-10] MEDS: ALPRAZOLAM 0.5 MG TAB PO PRN (22:04)
[2017-07-11] MEDS: HYDROCODONE/APAP (5/325) TAB PO PRN ×4 (00:43→18:21)
[2017-07-11 02:00] VITALS: BP 112/58; RESP 18
[2017-07-11] MEDS: PANTOPRAZOLE (EC) 40 MG TAB PO SCH (06:50)
[2017-07-11 07:30] VITALS: BP 110/55; RESP 18
[2017-07-11] MEDS: GABAPENTIN 100 MG CAP PO SCH ×2 (08:49→13:46)
[2017-07-11] MEDS: MULTIVITAMINS THERAPEUTIC TAB PO SCH (08:49)
[2017-07-11] MEDS: CHOLECALCIFEROL 1,000 UNIT TAB PO SCH (08:50)
[2017-07-11] MEDS: BACLOFEN 10 MG TAB PO SCH ×2 (08:50→20:46)
[2017-07-11] MEDS: CYANOCOBALAMIN 100 MCG TAB PO SCH (08:50)
[2017-07-11] MEDS: traMADol 50 MG TAB PO PRN ×2 (08:55→20:47)
--- NOTE | 2017-07-11 10:08 | CONS ---
Date/Time of Note Date/Time of Note DATE: 07/11/17 TIME: 10:08 Consult Date/Type/Reason Admit Date/Time Jul 03, 2017 at 16:07 Type of Consultation: Internal medicine Subjective Patient reports feeling better today Objective up for therapies sba ambulation Vital Signs Date Time Temp Pulse Resp B/P Pulse Ox O2 Delivery O2 Flow Rate FiO2 07/11/17 02:00 98.0 80 18 112/58 98 Intake and Output 07/10/17 07/10/17 07/11/17 14:59 22:59 06:59 Intake Total 1600 ml 350 ml Output Total 1200 ml 1600 ml Balance 400 ml -1250 ml Results/Medications Result Diagram: 07/07/17 1402 07/07/17 1402 Medications Current Medications Senna (Senokot) 1 tab HS PO Last administered on 07/07/17 20:44; Admin Dose 1 TAB; Start 07/03/17 at 21:00 Magnesium Hydroxide (Milk Of Mag) 30 ml BID PRN PO CONSTIPATION; Start at 17:00 Lactulose (Enulose) 20 gm DAILY PRN PO CONSTIPATION; Start 07/03/17 at 17:00 Bisacodyl (Dulcolax Supp) 10 mg DAILY PRN [place] CONSTIPATION; Start 07/03/17 at 17 :00 Pantoprazole (Protonix Tab) 40 mg DAILY@06 PO Last administered on 07/11/17 06:50; Admin Dose 40 MG; Start 07/03/17 at 17:56 Ondansetron HCl (Zofran Tab) 4 mg Q6H PRN PO NAUSEA AND/OR VOMITING; Start 07/03/17 at 17:56 Acetaminophen (Tylenol Tab) 650 mg Q6H PRN PO PAIN LEVEL 1-3 OR FEVER Last administered on 07/10/17 16:13; Admin Dose 650 MG; Start 07/03/17 at 17:56 Docusate Sodium (Colace) 100 mg Q12H PRN PO CONSTIPATION; Start 07/03/17 at 17: 56 Bisacodyl (Dulcolax) 5 mg DAILY PRN PO CONSTIPATION; Start 07/03/17 at 17:56 Cholecalciferol (Vitamin D) 5,000 unit DAILY PO Last administered on 08:50; Admin Dose 5,000 UNIT; Start 07/03/17 at 17:56 Ondansetron HCl (Zofran Inj) 4 mg Q6H PRN IV NAUSEA AND/OR VOMITING; Start 07/03/17 at 17:56 Tramadol HCl (Ultram) 50 mg Q6H PRN PO PAIN Last administered on 07/11/17 08: 55; Admin Dose 50 MG; Start 07/03/17 at 17:56 Tamsulosin HCl (Flomax) 0.4 mg HS PO Last administered on 07/10/17 21:59; Admin Dose 0.4 MG; Start 07/04/17 at 21:00 Baclofen (Lioresal) 10 mg BID PO Last administered on 07/11/17 08:50; Admin Dose 10 MG; Start 07/04/17 at 21:00 Cyanocobalamin (Vitamin B12) 100 mcg DAILY PO Last administered on 07/11/17 08:50; Admin Dose 100 MCG; Start 07/05/17 at 09:00 Ergocalciferol (Drisdol) 50,000 unit We@09 PO Last administered on 07/05/17 12 :48; Admin Dose 50,000 UNIT; Start 07/05/17 at 09:00; Stop 08/23/17 at 09:01 Multivitamins Therapeutic (Theragran) 1 tab DAILY PO Last administered on 07/11 08:49; Admin Dose 1 TAB; Start 07/05/17 at 09:00 Acetaminophen/ Hydrocodone Bitart ([place] (5/325)) 1 tab Q4H PRN PO PAIN Last administered on 07/11/17 06:50; Admin Dose 1 TAB; Start 07/05/17 at 22:30 Alprazolam (Xanax) 0.5 mg Q12H PRN PO ANXIETY Last administered on 07/10/17 22:04; Admin Dose 0.5 MG; Start 07/07/17 at 14:00 Sodium Chloride (Deep Sea) 1 spray Q6H PRN NASAL IRRITATION/DRYNESS Last administered on 07/10/17 00:30; Admin Dose 1 SPRAY; Start 07/07/17 at 14:00 Gabapentin (Neurontin) 200 mg TID PO Last administered on 07/11/17 08:49; Admin Dose 200 MG; Start 07/08/17 at 09:00 Assessment/Plan Additional Assessment/Plan Rehab- Transverse myelitis with paraplegia. Continue rehab activities, and dc planning. Anticipate dc Saturday 07/14 Neuropathic pain-continue current meds Neurogenic bladder- voiding on flomax SHANELLE PORRAS MD Jul 11, 2017 10:08
[2017-07-11 14:00] VITALS: BP 128/64; RESP 20
--- NOTE | 2017-07-11 15:32 | CONS ---
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 1. LLE numbness, likely peripheral neuropathy with underlying vitamin D deficiency. No evidence of demyelinating disease. Status: Acute -Continue with vitamin D/B12 and multivitamin supplementation. -Stop gabapentin as patient is intolerant to it. Her LFTs also elevated. 2. 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 3. Neurogenic bladder. Now with more controlled. Status: Chronic -Continue Flomax. 4. Anxiety/emotional lability/instability, likely secondary to underlying medical condition. Stable. -PRN Xanax. Recommend psychiatry evaluation. DVT prophylaxis: Ambulation Patient was seen in collaboration with . Problems: Consultation Date/Type/Reason Admit Date/Time Jul 03, 2017 at 16:07 Type of Consultation: Internal medicine 24 HR Interval Summary Free Text/Dictation Patient is doing well overall. Numbness is improved. Exam/Review of Systems Vital Signs Vitals Vital Signs Date Time Temp Pulse Resp B/P Pulse Ox O2 Delivery O2 Flow Rate FiO2 07/11/17 07:30 98.8 98 18 110/55 99 Intake and Output 07/10/17 07/10/17 07/11/17 15:00 23:00 07:00 Intake Total 1600 ml 350 ml Output Total 1200 ml 1600 ml Balance 400 ml -1250 ml Exam General: Well developed,adequately built, not in any acute distress . HEENT: Normocephalic, Atraumatic, No laceration or hematoma; Eyes: PEERL, Conjunctiva clear, Anicteric sclera Neck: Supple without any lymphadenopathy, nontender, no JVD, no carotid bruits, trachea midline, no thyromegaly Cardiac: S1, S2 auscultated, regular rhythm and rate, no mumurs or gallop Pulmonary: Normal respiratory effort. Chest clear to auscultation bilaterally, no adventitious breath sounds GI: Abdomen normal to inspection. Soft, non tender, non- distended, no masses, no rebound tenderness or guarding. Bowel sounds active on all four quadrants Genitourinary: Incontinent-in&out cath Extremities: Right lower extremity with flaccid paralysis. Full range of motion on all other extremities other than right lower extremity. No cyanosis, clubbing, or edema. Pulses [2+] bilaterally. Neurologic: Alert to person, place, time, and situation. Affect: Labile mood/ highly emotional. Intact sensation. Skin: Clean,dry, and intact. No ecchymosis, no rashes, or lesions Results Result Diagram: 07/07/17 1402 07/07/17 1402 Medications Medications Current Medications Senna (Senokot) 1 tab HS PO Last administered on 07/07/17 20:44; Admin Dose 1 TAB; Start 07/03/17 at 21:00 Magnesium Hydroxide (Milk Of Mag) 30 ml BID PRN PO CONSTIPATION; Start at 17:00 Lactulose (Enulose) 20 gm DAILY PRN PO CONSTIPATION; Start 07/03/17 at 17:00 Bisacodyl (Dulcolax Supp) 10 mg DAILY PRN [place] CONSTIPATION; Start 07/03/17 at 17 :00 Pantoprazole (Protonix Tab) 40 mg DAILY@06 PO Last administered on 07/11/17 06:50; Admin Dose 40 MG; Start 07/03/17 at 17:56 Ondansetron HCl (Zofran Tab) 4 mg Q6H PRN PO NAUSEA AND/OR VOMITING; Start 07/03/17 at 17:56 Acetaminophen (Tylenol Tab) 650 mg Q6H PRN PO PAIN LEVEL 1-3 OR FEVER Last administered on 07/10/17 16:13; Admin Dose 650 MG; Start 07/03/17 at 17:56 Docusate Sodium (Colace) 100 mg Q12H PRN PO CONSTIPATION; Start 07/03/17 at 17: 56 Bisacodyl (Dulcolax) 5 mg DAILY PRN PO CONSTIPATION; Start 07/03/17 at 17:56 Cholecalciferol (Vitamin D) 5,000 unit DAILY PO Last administered on 08:50; Admin Dose 5,000 UNIT; Start 07/03/17 at 17:56 Ondansetron HCl (Zofran Inj) 4 mg Q6H PRN IV NAUSEA AND/OR VOMITING; Start 07/03/17 at 17:56 Tramadol HCl (Ultram) 50 mg Q6H PRN PO PAIN Last administered on 07/11/17 08: 55; Admin Dose 50 MG; Start 07/03/17 at 17:56 Tamsulosin HCl (Flomax) 0.4 mg HS PO Last administered on 07/10/17 21:59; Admin Dose 0.4 MG; Start 07/04/17 at 21:00 Baclofen (Lioresal) 10 mg BID PO Last administered on 07/11/17 08:50; Admin Dose 10 MG; Start 07/04/17 at 21:00 Cyanocobalamin (Vitamin B12) 100 mcg DAILY PO Last administered on 07/11/17 08:50; Admin Dose 100 MCG; Start 07/05/17 at 09:00 Ergocalciferol (Drisdol) 50,000 unit We@09 PO Last administered on 07/05/17 12 :48; Admin Dose 50,000 UNIT; Start 07/05/17 at 09:00; Stop 08/23/17 at 09:01 Multivitamins Therapeutic (Theragran) 1 tab DAILY PO Last administered on 07/11 08:49; Admin Dose 1 TAB; Start 07/05/17 at 09:00 Acetaminophen/ Hydrocodone Bitart ([place] (5/325)) 1 tab Q4H PRN PO PAIN Last administered on 07/11/17 13:46; Admin Dose 1 TAB; Start 07/05/17 at 22:30 Alprazolam (Xanax) 0.5 mg Q12H PRN PO ANXIETY Last administered on 07/10/17 22:04; Admin Dose 0.5 MG; Start 07/07/17 at 14:00 Sodium Chloride (Deep Sea) 1 spray Q6H PRN NASAL IRRITATION/DRYNESS Last administered on 07/10/17 00:30; Admin Dose 1 SPRAY; Start 07/07/17 at 14:00 Gabapentin (Neurontin) 200 mg TID PO Last administered on 07/11/17 13:46; Admin Dose 200 MG; Start 07/08/17 at 09:00 LANIE ALEXIS NP Jul 11, 2017 15:32
[2017-07-11 20:00] VITALS: BP 110/58; RESP 18
[2017-07-11] MEDS: TAMSULOSIN (SR) 0.4 MG CAP PO SCH (20:46)
[2017-07-11] MEDS: SENNA TAB PO SCH (20:46)
[2017-07-12] MEDS: HYDROCODONE/APAP (5/325) TAB PO PRN ×4 (01:45→19:26)
[2017-07-12 02:00] VITALS: BP 131/78; RESP 18
[2017-07-12] MEDS: PANTOPRAZOLE (EC) 40 MG TAB PO SCH (06:05)
[2017-07-12] MEDS: traMADol 50 MG TAB PO PRN ×2 (06:13→20:41)
[2017-07-12 08:00] VITALS: BP 99/52; RESP 18
[2017-07-12] MEDS: MULTIVITAMINS THERAPEUTIC TAB PO SCH (08:43)
[2017-07-12] MEDS: CYANOCOBALAMIN 100 MCG TAB PO SCH (08:43)
[2017-07-12] MEDS: BACLOFEN 10 MG TAB PO SCH ×2 (08:43→20:41)
[2017-07-12] MEDS: CHOLECALCIFEROL 1,000 UNIT TAB PO SCH (08:44)
--- NOTE | 2017-07-12 12:18 | CONS ---
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 1. LLE numbness, likely peripheral neuropathy with underlying vitamin D deficiency. No evidence of demyelinating disease. Status: Acute -Continue with vitamin D/B12 and multivitamin supplementation. 2. 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 3. Neurogenic bladder. Now with more controlled. Status: Chronic -Continue Flomax. 4. Anxiety/emotional lability/instability, likely secondary to underlying medical condition. Stable. -PRN Xanax. Recommend psychiatry evaluation. DVT prophylaxis: Ambulation Agree with discharge plan. Patient was seen in collaboration with . Problems: Consultation Date/Type/Reason Admit Date/Time Jul 03, 2017 at 16:07 Type of Consultation: Internal medicine 24 HR Interval Summary Free Text/Dictation Doing well. No acute distress. Exam/Review of Systems Vital Signs Vitals Vital Signs Date Time Temp Pulse Resp B/P Pulse Ox O2 Delivery O2 Flow Rate FiO2 07/12/17 08:00 97.9 85 18 99/52 99 Intake and Output 07/11/17 07/11/17 07/12/17 14:59 22:59 06:59 Intake Total 500 ml 960 ml 500 ml Output Total 250 ml 1300 ml Balance 250 ml 960 ml -800 ml Exam General: Well developed,adequately built, not in any acute distress . HEENT: Normocephalic, Atraumatic, No laceration or hematoma; Eyes: PEERL, Conjunctiva clear, Anicteric sclera Neck: Supple without any lymphadenopathy, nontender, no JVD, no carotid bruits, trachea midline, no thyromegaly Cardiac: S1, S2 auscultated, regular rhythm and rate, no mumurs or gallop Pulmonary: Normal respiratory effort. Chest clear to auscultation bilaterally, no adventitious breath sounds GI: Abdomen normal to inspection. Soft, non tender, non- distended, no masses, no rebound tenderness or guarding. Bowel sounds active on all four quadrants Genitourinary: Incontinent-in&out cath Extremities: Right lower extremity with flaccid paralysis. Full range of motion on all other extremities other than right lower extremity. No cyanosis, clubbing, or edema. Pulses [2+] bilaterally. Neurologic: Alert to person, place, time, and situation. Affect: Labile mood/ highly emotional. Intact sensation. Skin: Clean,dry, and intact. No ecchymosis, no rashes, or lesions Medications Medications Current Medications Senna (Senokot) 1 tab HS PO Last administered on 07/11/17 20:46; Admin Dose 1 TAB; Start 07/03/17 at 21:00 Magnesium Hydroxide (Milk Of Mag) 30 ml BID PRN PO CONSTIPATION; Start at 17:00 Lactulose (Enulose) 20 gm DAILY PRN PO CONSTIPATION; Start 07/03/17 at 17:00 Bisacodyl (Dulcolax Supp) 10 mg DAILY PRN [place] CONSTIPATION; Start 07/03/17 at 17 :00 Pantoprazole (Protonix Tab) 40 mg DAILY@06 PO Last administered on 07/12/17 06:05; Admin Dose 40 MG; Start 07/03/17 at 17:56 Ondansetron HCl (Zofran Tab) 4 mg Q6H PRN PO NAUSEA AND/OR VOMITING; Start 07/03/17 at 17:56 Acetaminophen (Tylenol Tab) 650 mg Q6H PRN PO PAIN LEVEL 1-3 OR FEVER Last administered on 07/10/17 16:13; Admin Dose 650 MG; Start 07/03/17 at 17:56 Docusate Sodium (Colace) 100 mg Q12H PRN PO CONSTIPATION; Start 07/03/17 at 17: 56 Bisacodyl (Dulcolax) 5 mg DAILY PRN PO CONSTIPATION; Start 07/03/17 at 17:56 Cholecalciferol (Vitamin D) 5,000 unit DAILY PO Last administered on 08:44; Admin Dose 5,000 UNIT; Start 07/03/17 at 17:56 Ondansetron HCl (Zofran Inj) 4 mg Q6H PRN IV NAUSEA AND/OR VOMITING; Start 07/03/17 at 17:56 Tramadol HCl (Ultram) 50 mg Q6H PRN PO PAIN Last administered on 07/12/17 06: 13; Admin Dose 50 MG; Start 07/03/17 at 17:56 Tamsulosin HCl (Flomax) 0.4 mg HS PO Last administered on 07/11/17 20:46; Admin Dose 0.4 MG; Start 07/04/17 at 21:00 Baclofen (Lioresal) 10 mg BID PO Last administered on 07/12/17 08:43; Admin Dose 10 MG; Start 07/04/17 at 21:00 Cyanocobalamin (Vitamin B12) 100 mcg DAILY PO Last administered on 07/12/17 08:43; Admin Dose 100 MCG; Start 07/05/17 at 09:00 Ergocalciferol (Drisdol) 50,000 unit We@09 PO Last administered on 07/05/17 12 :48; Admin Dose 50,000 UNIT; Start 07/05/17 at 09:00; Stop 08/23/17 at 09:01 Multivitamins Therapeutic (Theragran) 1 tab DAILY PO Last administered on 07/12 08:43; Admin Dose 1 TAB; Start 07/05/17 at 09:00 Acetaminophen/ Hydrocodone Bitart ([place] (5/325)) 1 tab Q4H PRN PO PAIN Last administered on 07/12/17 08:43; Admin Dose 1 TAB; Start 07/05/17 at 22:30 Alprazolam (Xanax) 0.5 mg Q12H PRN PO ANXIETY Last administered on 07/10/17 22:04; Admin Dose 0.5 MG; Start 07/07/17 at 14:00 Sodium Chloride (Deep Sea) 1 spray Q6H PRN NASAL IRRITATION/DRYNESS Last administered on 07/10/17 00:30; Admin Dose 1 SPRAY; Start 07/07/17 at 14:00 LANIE ALEXIS NP Jul 12, 2017 12:18
--- NOTE | 2017-07-12 13:44 | CONS ---
Date/Time of Note Date/Time of Note DATE: 07/12/17 TIME: 13:44 Consult Date/Type/Reason Admit Date/Time Jul 03, 2017 at 16:07 Type of Consultation: Internal medicine Subjective Overall improved Objective pulm-cta sba ambulation Vital Signs Date Time Temp Pulse Resp B/P Pulse Ox O2 Delivery O2 Flow Rate FiO2 07/12/17 08:00 97.9 85 18 99/52 99 Intake and Output 07/11/17 07/11/17 07/12/17 15:00 23:00 07:00 Intake Total 500 ml 960 ml 500 ml Output Total 250 ml 1300 ml Balance 250 ml 960 ml -800 ml Results/Medications Medications Current Medications Senna (Senokot) 1 tab HS PO Last administered on 07/11/17 20:46; Admin Dose 1 TAB; Start 07/03/17 at 21:00 Magnesium Hydroxide (Milk Of Mag) 30 ml BID PRN PO CONSTIPATION; Start at 17:00 Lactulose (Enulose) 20 gm DAILY PRN PO CONSTIPATION; Start 07/03/17 at 17:00 Bisacodyl (Dulcolax Supp) 10 mg DAILY PRN [place] CONSTIPATION; Start 07/03/17 at 17 :00 Pantoprazole (Protonix Tab) 40 mg DAILY@06 PO Last administered on 07/12/17 06:05; Admin Dose 40 MG; Start 07/03/17 at 17:56 Ondansetron HCl (Zofran Tab) 4 mg Q6H PRN PO NAUSEA AND/OR VOMITING; Start 07/03/17 at 17:56 Acetaminophen (Tylenol Tab) 650 mg Q6H PRN PO PAIN LEVEL 1-3 OR FEVER Last administered on 07/10/17 16:13; Admin Dose 650 MG; Start 07/03/17 at 17:56 Docusate Sodium (Colace) 100 mg Q12H PRN PO CONSTIPATION; Start 07/03/17 at 17: 56 Bisacodyl (Dulcolax) 5 mg DAILY PRN PO CONSTIPATION; Start 07/03/17 at 17:56 Cholecalciferol (Vitamin D) 5,000 unit DAILY PO Last administered on 08:44; Admin Dose 5,000 UNIT; Start 07/03/17 at 17:56 Ondansetron HCl (Zofran Inj) 4 mg Q6H PRN IV NAUSEA AND/OR VOMITING; Start 07/03/17 at 17:56 Tramadol HCl (Ultram) 50 mg Q6H PRN PO PAIN Last administered on 07/12/17 06: 13; Admin Dose 50 MG; Start 07/03/17 at 17:56 Tamsulosin HCl (Flomax) 0.4 mg HS PO Last administered on 07/11/17 20:46; Admin Dose 0.4 MG; Start 07/04/17 at 21:00 Baclofen (Lioresal) 10 mg BID PO Last administered on 07/12/17 08:43; Admin Dose 10 MG; Start 07/04/17 at 21:00 Cyanocobalamin (Vitamin B12) 100 mcg DAILY PO Last administered on 07/12/17 08:43; Admin Dose 100 MCG; Start 07/05/17 at 09:00 Multivitamins Therapeutic (Theragran) 1 tab DAILY PO Last administered on 07/12 08:43; Admin Dose 1 TAB; Start 07/05/17 at 09:00 Acetaminophen/ Hydrocodone Bitart ([place] (5/325)) 1 tab Q4H PRN PO PAIN Last administered on 07/12/17 08:43; Admin Dose 1 TAB; Start 07/05/17 at 22:30 Alprazolam (Xanax) 0.5 mg Q12H PRN PO ANXIETY Last administered on 07/10/17 22:04; Admin Dose 0.5 MG; Start 07/07/17 at 14:00 Sodium Chloride (Deep Sea) 1 spray Q6H PRN NASAL IRRITATION/DRYNESS Last administered on 07/10/17 00:30; Admin Dose 1 SPRAY; Start 07/07/17 at 14:00 Assessment/Plan Additional Assessment/Plan Rehab- Transverse myelitis with paraplegia. Continue rehab activities, and dc planning. Anticipate dc Saturday 07/14 Neuropathic pain-d/c neurontin Neurogenic bladder- voiding on flomax SHANELLE PORRAS MD Jul 12, 2017 13:44
[2017-07-12] MEDS: TAMSULOSIN (SR) 0.4 MG CAP PO SCH (20:41)
[2017-07-12] MEDS: SENNA TAB PO SCH (21:00)
[2017-07-12] MEDS: ALPRAZOLAM 0.5 MG TAB PO PRN (22:02)
[2017-07-12] MEDS: SALINE 0.65% 45 ML NAS SPRAY NASAL PRN (22:03)
[2017-07-13 02:06] VITALS: BP 112/62; RESP 18
[2017-07-13] MEDS: PANTOPRAZOLE (EC) 40 MG TAB PO SCH (06:10)
[2017-07-13] MEDS: HYDROCODONE/APAP (5/325) TAB PO PRN ×3 (07:05→19:00)
[2017-07-13 07:30] VITALS: BP 102/52; RESP 18
[2017-07-13] MEDS: MULTIVITAMINS THERAPEUTIC TAB PO SCH (08:16)
[2017-07-13] MEDS: BACLOFEN 10 MG TAB PO SCH ×2 (08:16→20:52)
[2017-07-13] MEDS: CHOLECALCIFEROL 1,000 UNIT TAB PO SCH (08:16)
[2017-07-13] MEDS: CYANOCOBALAMIN 100 MCG TAB PO SCH (08:16)
--- NOTE | 2017-07-13 10:34 | CONS ---
Date/Time of Note Date/Time of Note DATE: 07/13/17 TIME: 10:34 Consult Date/Type/Reason Admit Date/Time Jul 03, 2017 at 16:07 Type of Consultation: Internal medicine Subjective Feeling better Objective sba ambulation with FWW Vital Signs Date Time Temp Pulse Resp B/P Pulse Ox O2 Delivery O2 Flow Rate FiO2 07/13/17 07:30 98.5 86 18 102/52 100 Intake and Output 07/12/17 07/12/17 07/13/17 15:00 23:00 07:00 Intake Total 1000 ml 1250 ml Output Total 400 ml 550 ml Balance 600 ml 700 ml Results/Medications Medications Current Medications Senna (Senokot) 1 tab HS PO Last administered on 07/11/17 20:46; Admin Dose 1 TAB; Start 07/03/17 at 21:00 Magnesium Hydroxide (Milk Of Mag) 30 ml BID PRN PO CONSTIPATION; Start at 17:00 Lactulose (Enulose) 20 gm DAILY PRN PO CONSTIPATION; Start 07/03/17 at 17:00 Bisacodyl (Dulcolax Supp) 10 mg DAILY PRN [place] CONSTIPATION; Start 07/03/17 at 17 :00 Pantoprazole (Protonix Tab) 40 mg DAILY@06 PO Last administered on 07/13/17 06:10; Admin Dose 40 MG; Start 07/03/17 at 17:56 Ondansetron HCl (Zofran Tab) 4 mg Q6H PRN PO NAUSEA AND/OR VOMITING; Start 07/03/17 at 17:56 Acetaminophen (Tylenol Tab) 650 mg Q6H PRN PO PAIN LEVEL 1-3 OR FEVER Last administered on 07/10/17 16:13; Admin Dose 650 MG; Start 07/03/17 at 17:56 Docusate Sodium (Colace) 100 mg Q12H PRN PO CONSTIPATION; Start 07/03/17 at 17: 56 Bisacodyl (Dulcolax) 5 mg DAILY PRN PO CONSTIPATION; Start 07/03/17 at 17:56 Cholecalciferol (Vitamin D) 5,000 unit DAILY PO Last administered on 08:16; Admin Dose 5,000 UNIT; Start 07/03/17 at 17:56 Ondansetron HCl (Zofran Inj) 4 mg Q6H PRN IV NAUSEA AND/OR VOMITING; Start 07/03/17 at 17:56 Tramadol HCl (Ultram) 50 mg Q6H PRN PO PAIN Last administered on 07/12/17 20: 41; Admin Dose 50 MG; Start 07/03/17 at 17:56 Tamsulosin HCl (Flomax) 0.4 mg HS PO Last administered on 07/12/17 20:41; Admin Dose 0.4 MG; Start 07/04/17 at 21:00 Baclofen (Lioresal) 10 mg BID PO Last administered on 07/13/17 08:16; Admin Dose 10 MG; Start 07/04/17 at 21:00 Cyanocobalamin (Vitamin B12) 100 mcg DAILY PO Last administered on 07/13/17 08:16; Admin Dose 100 MCG; Start 07/05/17 at 09:00 Multivitamins Therapeutic (Theragran) 1 tab DAILY PO Last administered on 07/13 08:16; Admin Dose 1 TAB; Start 07/05/17 at 09:00 Acetaminophen/ Hydrocodone Bitart ([place] (5/325)) 1 tab Q4H PRN PO PAIN Last administered on 07/13/17 07:05; Admin Dose 1 TAB; Start 07/05/17 at 22:30 Alprazolam (Xanax) 0.5 mg Q12H PRN PO ANXIETY Last administered on 07/12/17 22:02; Admin Dose 0.5 MG; Start 07/07/17 at 14:00 Sodium Chloride (Deep Sea) 1 spray Q6H PRN NASAL IRRITATION/DRYNESS Last administered on 07/12/17 22:03; Admin Dose 1 SPRAY; Start 07/07/17 at 14:00 Assessment/Plan Additional Assessment/Plan Rehab- Transverse Myelititis Excellent functional gains Neuropathic Pain- under better control Neurogenic bladder- voiding SHANELLE PORRAS MD Jul 13, 2017 10:34
--- NOTE | 2017-07-13 10:52 | CONS ---
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 1. LLE numbness, likely peripheral neuropathy with underlying vitamin D deficiency. No evidence of demyelinating disease. Improved. Status: Acute -Continue with vitamin D/B12 and multivitamin supplementation. 2. 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 3. Neurogenic bladder. Now with more controlled. Status: Chronic -Continue Flomax. 4. Anxiety/emotional lability/instability, likely secondary to underlying medical condition. Stable. -PRN Xanax. Recommend psychiatry evaluation. DVT prophylaxis: Ambulation Agree with discharge plan. Patient was seen in collaboration with . Problems: Consultation Date/Type/Reason Admit Date/Time Jul 03, 2017 at 16:07 Type of Consultation: Internal medicine 24 HR Interval Summary Free Text/Dictation No acute distress. Exam/Review of Systems Vital Signs Vitals Vital Signs Date Time Temp Pulse Resp B/P Pulse Ox O2 Delivery O2 Flow Rate FiO2 07/13/17 07:30 98.5 86 18 102/52 100 Intake and Output 07/12/17 07/12/17 07/13/17 15:00 23:00 07:00 Intake Total 1000 ml 1250 ml Output Total 400 ml 550 ml Balance 600 ml 700 ml Exam General: Well developed,adequately built, not in any acute distress . HEENT: Normocephalic, Atraumatic, No laceration or hematoma; Eyes: PEERL, Conjunctiva clear, Anicteric sclera Neck: Supple without any lymphadenopathy, nontender, no JVD, no carotid bruits, trachea midline, no thyromegaly Cardiac: S1, S2 auscultated, regular rhythm and rate, no mumurs or gallop Pulmonary: Normal respiratory effort. Chest clear to auscultation bilaterally, no adventitious breath sounds GI: Abdomen normal to inspection. Soft, non tender, non- distended, no masses, no rebound tenderness or guarding. Bowel sounds active on all four quadrants Genitourinary: Incontinent-in&out cath Extremities: Right lower extremity with flaccid paralysis. Full range of motion on all other extremities other than right lower extremity. No cyanosis, clubbing, or edema. Pulses [2+] bilaterally. Neurologic: Alert to person, place, time, and situation. Affect: Labile mood/ highly emotional. Intact sensation. Skin: Clean,dry, and intact. No ecchymosis, no rashes, or lesions Medications Medications Current Medications Senna (Senokot) 1 tab HS PO Last administered on 07/11/17 20:46; Admin Dose 1 TAB; Start 07/03/17 at 21:00 Magnesium Hydroxide (Milk Of Mag) 30 ml BID PRN PO CONSTIPATION; Start at 17:00 Lactulose (Enulose) 20 gm DAILY PRN PO CONSTIPATION; Start 07/03/17 at 17:00 Bisacodyl (Dulcolax Supp) 10 mg DAILY PRN [place] CONSTIPATION; Start 07/03/17 at 17 :00 Pantoprazole (Protonix Tab) 40 mg DAILY@06 PO Last administered on 07/13/17 06:10; Admin Dose 40 MG; Start 07/03/17 at 17:56 Ondansetron HCl (Zofran Tab) 4 mg Q6H PRN PO NAUSEA AND/OR VOMITING; Start 07/03/17 at 17:56 Acetaminophen (Tylenol Tab) 650 mg Q6H PRN PO PAIN LEVEL 1-3 OR FEVER Last administered on 07/10/17 16:13; Admin Dose 650 MG; Start 07/03/17 at 17:56 Docusate Sodium (Colace) 100 mg Q12H PRN PO CONSTIPATION; Start 07/03/17 at 17: 56 Bisacodyl (Dulcolax) 5 mg DAILY PRN PO CONSTIPATION; Start 07/03/17 at 17:56 Cholecalciferol (Vitamin D) 5,000 unit DAILY PO Last administered on 08:16; Admin Dose 5,000 UNIT; Start 07/03/17 at 17:56 Ondansetron HCl (Zofran Inj) 4 mg Q6H PRN IV NAUSEA AND/OR VOMITING; Start 07/03/17 at 17:56 Tramadol HCl (Ultram) 50 mg Q6H PRN PO PAIN Last administered on 07/12/17 20: 41; Admin Dose 50 MG; Start 07/03/17 at 17:56 Tamsulosin HCl (Flomax) 0.4 mg HS PO Last administered on 07/12/17 20:41; Admin Dose 0.4 MG; Start 07/04/17 at 21:00 Baclofen (Lioresal) 10 mg BID PO Last administered on 07/13/17 08:16; Admin Dose 10 MG; Start 07/04/17 at 21:00 Cyanocobalamin (Vitamin B12) 100 mcg DAILY PO Last administered on 07/13/17 08:16; Admin Dose 100 MCG; Start 07/05/17 at 09:00 Multivitamins Therapeutic (Theragran) 1 tab DAILY PO Last administered on 07/13 08:16; Admin Dose 1 TAB; Start 07/05/17 at 09:00 Acetaminophen/ Hydrocodone Bitart ([place] (5/325)) 1 tab Q4H PRN PO PAIN Last administered on 07/13/17 07:05; Admin Dose 1 TAB; Start 07/05/17 at 22:30 Alprazolam (Xanax) 0.5 mg Q12H PRN PO ANXIETY Last administered on 07/12/17 22:02; Admin Dose 0.5 MG; Start 07/07/17 at 14:00 Sodium Chloride (Deep Sea) 1 spray Q6H PRN NASAL IRRITATION/DRYNESS Last administered on 07/12/17 22:03; Admin Dose 1 SPRAY; Start 07/07/17 at 14:00 LANIE ALEXIS NP Jul 13, 2017 10:52
[2017-07-13] MEDS: ACETAMINOPHEN 325 MG TAB PO PRN ×2 (11:29→19:00)
[2017-07-13 14:00] VITALS: BP 121/65; RESP 18
[2017-07-13 20:00] VITALS: BP 118/65; RESP 18
[2017-07-13] MEDS: TAMSULOSIN (SR) 0.4 MG CAP PO SCH (20:52)
[2017-07-13] MEDS: SENNA TAB PO SCH (20:52)
[2017-07-13] MEDS: traMADol 50 MG TAB PO PRN (21:49)
[2017-07-14 02:00] VITALS: BP 120/62; RESP 18
[2017-07-14] MEDS: PANTOPRAZOLE (EC) 40 MG TAB PO SCH (05:20)
[2017-07-14] MEDS: HYDROCODONE/APAP (5/325) TAB PO PRN ×2 (05:20→10:26)
[2017-07-14 07:30] VITALS: BP 117/69; RESP 20
[2017-07-14] MEDS: MULTIVITAMINS THERAPEUTIC TAB PO SCH (08:43)
[2017-07-14] MEDS: CYANOCOBALAMIN 100 MCG TAB PO SCH (08:43)
[2017-07-14] MEDS: BACLOFEN 10 MG TAB PO SCH (08:43)
[2017-07-14] MEDS: traMADol 50 MG TAB PO PRN (08:43)
[2017-07-14] MEDS: CHOLECALCIFEROL 1,000 UNIT TAB PO SCH (08:44)
--- NOTE | 2017-07-14 09:14 | CONS ---
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 1. LLE numbness, likely peripheral neuropathy with underlying vitamin D deficiency. No evidence of demyelinating disease. Improved. Status: Acute -Continue with vitamin D/B12 and multivitamin supplementation. 2. 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 3. Neurogenic bladder. Now with more controlled. Status: Chronic -Continue Flomax. 4. Anxiety/emotional lability/instability, likely secondary to underlying medical condition. Stable. -PRN Xanax. Recommend psychiatry evaluation. DVT prophylaxis: Ambulation Agree with discharge plan. Recommend continuation of vitamin supplements that patient is taking to continue as outpatient. Patient was seen in collaboration with . Problems: Consultation Date/Type/Reason Admit Date/Time Jul 03, 2017 at 16:07 Type of Consultation: Internal medicine 24 HR Interval Summary Free Text/Dictation Patient is doing well. She is for discharge today. Exam/Review of Systems Vital Signs Vitals Vital Signs Date Time Temp Pulse Resp B/P Pulse Ox O2 Delivery O2 Flow Rate FiO2 07/14/17 02:00 98.3 82 18 120/62 95 Intake and Output 07/13/17 07/13/17 07/14/17 14:59 22:59 06:59 Intake Total 840 ml 1300 ml Balance 840 ml 1300 ml Exam General: Well developed,adequately built, not in any acute distress . HEENT: Normocephalic, Atraumatic, No laceration or hematoma; Eyes: PEERL, Conjunctiva clear, Anicteric sclera Neck: Supple without any lymphadenopathy, nontender, no JVD, no carotid bruits, trachea midline, no thyromegaly Cardiac: S1, S2 auscultated, regular rhythm and rate, no mumurs or gallop Pulmonary: Normal respiratory effort. Chest clear to auscultation bilaterally, no adventitious breath sounds GI: Abdomen normal to inspection. Soft, non tender, non- distended, no masses, no rebound tenderness or guarding. Bowel sounds active on all four quadrants Genitourinary: Incontinent-in&out cath Extremities: Right lower extremity with flaccid paralysis. Full range of motion on all other extremities other than right lower extremity. No cyanosis, clubbing, or edema. Pulses [2+] bilaterally. Neurologic: Alert to person, place, time, and situation. Affect: Labile mood/ highly emotional. Intact sensation. Skin: Clean,dry, and intact. No ecchymosis, no rashes, or lesions Medications Medications Current Medications Senna (Senokot) 1 tab HS PO Last administered on 07/13/17 20:52; Admin Dose 1 TAB; Start 07/03/17 at 21:00 Magnesium Hydroxide (Milk Of Mag) 30 ml BID PRN PO CONSTIPATION; Start at 17:00 Lactulose (Enulose) 20 gm DAILY PRN PO CONSTIPATION; Start 07/03/17 at 17:00 Bisacodyl (Dulcolax Supp) 10 mg DAILY PRN [place] CONSTIPATION; Start 07/03/17 at 17 :00 Pantoprazole (Protonix Tab) 40 mg DAILY@06 PO Last administered on 07/14/17 05:20; Admin Dose 40 MG; Start 07/03/17 at 17:56 Ondansetron HCl (Zofran Tab) 4 mg Q6H PRN PO NAUSEA AND/OR VOMITING; Start 07/03/17 at 17:56 Acetaminophen (Tylenol Tab) 650 mg Q6H PRN PO PAIN LEVEL 1-3 OR FEVER Last administered on 07/13/17 19:00; Admin Dose 650 MG; Start 07/03/17 at 17:56 Docusate Sodium (Colace) 100 mg Q12H PRN PO CONSTIPATION; Start 07/03/17 at 17: 56 Bisacodyl (Dulcolax) 5 mg DAILY PRN PO CONSTIPATION; Start 07/03/17 at 17:56 Cholecalciferol (Vitamin D) 5,000 unit DAILY PO Last administered on 08:44; Admin Dose 5,000 UNIT; Start 07/03/17 at 17:56 Ondansetron HCl (Zofran Inj) 4 mg Q6H PRN IV NAUSEA AND/OR VOMITING; Start 07/03/17 at 17:56 Tramadol HCl (Ultram) 50 mg Q6H PRN PO PAIN Last administered on 07/14/17 08: 43; Admin Dose 50 MG; Start 07/03/17 at 17:56 Tamsulosin HCl (Flomax) 0.4 mg HS PO Last administered on 07/13/17 20:52; Admin Dose 0.4 MG; Start 07/04/17 at 21:00 Baclofen (Lioresal) 10 mg BID PO Last administered on 07/14/17 08:43; Admin Dose 10 MG; Start 07/04/17 at 21:00 Cyanocobalamin (Vitamin B12) 100 mcg DAILY PO Last administered on 07/14/17 08:43; Admin Dose 100 MCG; Start 07/05/17 at 09:00 Multivitamins Therapeutic (Theragran) 1 tab DAILY PO Last administered on 07/14 08:43; Admin Dose 1 TAB; Start 07/05/17 at 09:00 Acetaminophen/ Hydrocodone Bitart ([place] (5/325)) 1 tab Q4H PRN PO PAIN Last administered on 07/14/17 05:20; Admin Dose 1 TAB; Start 07/05/17 at 22:30 Alprazolam (Xanax) 0.5 mg Q12H PRN PO ANXIETY Last administered on 07/12/17 22:02; Admin Dose 0.5 MG; Start 07/07/17 at 14:00 Sodium Chloride (Deep Sea) 1 spray Q6H PRN NASAL IRRITATION/DRYNESS Last administered on 07/12/17 22:03; Admin Dose 1 SPRAY; Start 07/07/17 at 14:00 LANIE ALEXIS NP Jul 14, 2017 09:14
[2017-07-14] MEDS: ACETAMINOPHEN 325 MG TAB PO PRN (10:26)
--- NOTE | 2017-07-14 10:57 | DS ---
Date/Time of Note Date/Time of Note DATE: 07/14/17 TIME: 10:57 Discharge Summary Admission/Discharge Info Admit Date/Time Jul 03, 2017 at 16:07 Discharge Date/Time Discharge Diagnosis 1.Transverse myelitis with paraplegia. 2. Neuropathic pain 3. Neurogenic bladder. 4. Improvements in self-care and mobility. Patient Condition: Good Hospital Course Patient was admitted for comprehensive interdisciplinary acute rehabilitation. Patient made steady functional gains and improved from a mod/max level to a Modified Independent level for self care and mobility, including ambulating over 150 feet with the use of a front wheeled walker. She was fit with appropriate AFO bilaterally. She did have urinary retention on admission, which improved with the addition of Flomax. Patient is being discharged home with recommendations for home health PT and OT follow up. DME recommendations: FWW; BSC; Shower Chair Patient will follow up with PMD upon DC. Home Meds Reported Medications Acetaminophen* (Acephen*) 650 Mg Supp, 650 MG RI Q4H Y for PAIN, SUPP 06/27/17 Tramadol HCl (Tramadol HCl) 50 Mg Tablet, 50 MG PO TID, #90 TAB 06/27/17 Gabapentin* (Gabapentin*) 100 Mg Capsule, 200 MG PO TID, #180 CAP 06/27/17 Cholecalciferol* (Vitamin D*) 400 Unit Tablet, 5000 UNIT PO DAILY, TAB 06/27/17 Primary Care Provider Not On Staff Doctor SHANELLE PORRAS MD Jul 14, 2017 10:57
== END 2017-07-14 18:42 | disposition home health service (06) | DRG 53 ==
LOC: VRC 16:07
PROVIDERS: ADMIT Physical Medicine & Rehabilitation; ATTEND Internal Medicine Pulmonary Disease
DX: G82.20 Paraplegia, unspecified (principal); G09 Sequelae of inflammatory diseases of central nervous system; G62.9 Polyneuropathy, unspecified; E55.9 Vitamin D deficiency, unspecified; N31.9 Neuromuscular dysfunction of bladder, unspecified; Z74.09 Other reduced mobility; F41.9 Anxiety disorder, unspecified; R45.86 Emotional lability
CPT/HCPCS: 80053; 80076; 81001; 81003; 84436; 84439; 84443; 84479; 84481; 85025; 87081; 87086; 97110; 97112; 97116; 97150; 97163; 97530; 97535; 97542; A4310; J2270; J3030; J3420; L1820; L1932; L2270; L2275; L2820